=== PATIENT | male | born 1960 | race Caucasian/White ===

== ENCOUNTER 2019-06-22 09:28 | Emergency (ER) | payer MEDICARE, OTHER, MEDICAID, SELFPAY ==
[2019-06-22 09:29] VITALS: BP 137/89; PULSE 87; RESP 22; TEMP 36.8; O2SAT 95; BMI 25.7
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
[2019-06-22] MEDS: ketorolac 60 mg/2 mL INJ IM (11:30)
[2019-06-22 11:33] VITALS: RESP 16; O2SAT 98
[2019-06-22] MEDS: morphine 4 mg/mL SDV 1 mL IM (11:33)
[2019-06-22] MEDS: ondansetron 4 MG Tablet PO (11:34)
[2019-06-22 11:36] VITALS: BP 125/78; PULSE 72; RESP 18; O2SAT 96
[2019-06-22 13:07] VITALS: RESP 18; O2SAT 98
[2019-06-22] MEDS: morphine 4 mg/mL SDV 1 mL 6 MG IVP (13:07)
[2019-06-22 14:35] VITALS: BP 122/71; PULSE 82; RESP 18; O2SAT 98
== END 2019-06-22 14:38 | disposition home or self-care (01) ==
PROVIDERS: Emergency Provider Family Medicine; Family Provider Family Medicine; PCP Family Medicine
DX: Z04.1 Encounter for examination and observation following transport accident (principal); V89.2XXA Person injured in unspecified motor-vehicle accident, traffic, initial encounter; J45.909 Unspecified asthma, uncomplicated; Z86.73 Personal history of transient ischemic attack (TIA), and cerebral infarction without residual deficits; I10 Essential (primary) hypertension; Z87.891 Personal history of nicotine dependence
CPT/HCPCS: 70450; 72125; 72156; 96372; 96374; 99282; A9579; J1885; J2270; Q0162

== ENCOUNTER 2019-08-10 14:56 | Outpatient (CLI) | payer MEDICARE, SELFPAY ==
--- NOTE | 2019-08-10 15:15 | MR_ITS ---
WS: [id number] MRI LEFT KNEE NONCONTRAST TECHNIQUE: Axial PD, coronal PD fat sat, coronal PD, sagittal PD, and sagittal PD fat-sat images obta ined. CLINICAL INFORMATION: trauma to knee COMPARISON: None. FINDINGS: Normal anatomic alignment. Distal quadriceps and patella tendons are intact. Anterior cruciate ligame nt is normal. Normal posterior cruciate ligament. Hypertrophic patella. Moderate suprapatellar effusi on. Popliteal cyst. Popliteal cyst measures 2.8 x 3.2 x 5.6 cm AP by transverse by craniocaudal. Thin maggy of the medial and lateral meniscus. Complex horizontal tear involving the lateral meniscus with blunting of the anterior horn. Extension to the articular surface into the free edge of the meniscus. Horizontal tear involving the posterior horn medial meniscus. This extends the articular surface. Med ial and lateral collateral ligaments are intact. Moderate chondromalacia patella worse involving the lateral patella facet. No subchondral edema. Hype rtrophic patella. Hypertrophic changes along the joint line. MR/MR knee LT wo con* [id number] IMPRESSION: 1. Anterior and posterior cruciate ligaments are intact. 2. Complex horizontal tear involving the lateral meniscus extending to the art icular surface with blunting of the anterior horn. Additional tiny radial tear involving the posterior horn medial meniscus. 3. Large popliteal cyst measuring 2.8 x 3.2 x 5.6 cm with edema in the poplite al fossa. 4. Moderate chondromalacia patella. Moderate chondromalacia involving the medi al and lateral joint compartments with joint space narrowing.
== END 2019-08-10 14:57 | disposition home or self-care (01) ==
LOC: RADSHAW 15:03
PROVIDERS: Family Provider Family Medicine; PCP Family Medicine; Visit Provider Family Medicine
DX: M25.462 Effusion, left knee (principal); S83.272A Complex tear of lateral meniscus, current injury, left knee, initial encounter; X58.XXXA Exposure to other specified factors, initial encounter; M71.22 Synovial cyst of popliteal space [Baker], left knee; M22.42 Chondromalacia patellae, left knee
CPT/HCPCS: 73721

== ENCOUNTER → 2019-09-07 08:36 | Outpatient (BNVA) | payer MEDICARE, MEDICAID, SELFPAY | PROVIDERS: Family Provider Family Medicine; PCP Family Medicine; Visit Provider Nurse Practitioner | DX: F31.73 Bipolar disorder, in partial remission, most recent episode manic (principal); F41.1 Generalized anxiety disorder; F10.21 Alcohol dependence, in remission; F70 Mild intellectual disabilities | CPT/HCPCS: 99213 ==

== ENCOUNTER → 2019-09-14 09:25 | Outpatient (BNVA) | payer MEDICARE, MEDICAID, SELFPAY | PROVIDERS: Family Provider Family Medicine; PCP Family Medicine; Referring Provider Family Medicine; Visit Provider Specialist | DX: M17.0 Bilateral primary osteoarthritis of knee (principal) | CPT/HCPCS: 73560; 73565 ==

== ENCOUNTER 2019-09-18 10:53 | Day surgery (SDC) | payer MEDICARE, MEDICAID, SELFPAY ==
[2019-09-15 11:29] VITALS: BMI 29.8
[2019-09-18] VITALS (10 sets, daily range): BP systolic 117–131; BP diastolic 72–89; PULSE 72–88; RESP 13–24; TEMP 36.1–36.6; O2SAT 94–98
--- NOTE | 2019-09-18 11:34 | ANES.PREANE2 ---
Pre-Anesthetic Assessment Pre-Anesthetic Assessment: Height/Weight: Height 1.83 m Weight 99.79 kg Preop Diagnosis: Left knee lateral meniscal tear with internal derangement Proposed Procedure: Operation Date: 09/18/19 13:00 Proposed Procedures p Knee Arthroscopy with lateral menisectomy 14017 S82.282A(Left) - Melyssa Rome MD Familial anesthetic complications: None Was Beta Kim taken within 24 hours: N/A Last intake: Intake Last Liquid Date 09/18/19 Last Liquid Time 00:00 Last Solid Date 09/18/19 Last Solid Time 00:00 Social: Social History: Tobacco and No alcohol Packs per day: occasional cigarettes Exam: Pre-Anes Outpt Exam: alert, oriented x 3, clear to auscultation bilaterally and regular rate & rhythm Airway: Cervical ROM: WNL MP: 4 Dentition: False Pulmonary: Pulmonary: None reported CV/HEM: CV/HEM: None reported : : None reported Hepatic: Hepatic: None reported GI: GI: None reported Metabolic: Metabolic: None reported Musc/skel: Musc/skel: None reported Neuropsych: Neuropsych: Seizure (Last one was 1.5 years ago, stress induced) Anesthetic Plan: ASA status: 2 Anesthesia: General Risk of > 500 ml blood loss (7ml/kg in children): No PFSH Anesthesia PFSH: Social History Smoking and tobacco status: current some day smoker Alcohol intake: never Household members: none Marital status: Current occupational status: disabled History of recent travel: No Data Anesthesia Cardiac Studies: No Data to Display
[2019-09-18] MEDS: sodium chloride 0.9% 1,000 ML 30 ML IV (11:50)
[2019-09-18 12:17] LABS: Basophils % 0.2 %; Eosinophils # 0.3 10^3/uL (0.0-0.8); Eosinophils % 4.2 %; Hematocrit 41.7 % (42.0-52.0); Hemoglobin 14.2 g/dL (11.7-16.6); Lymphocytes # 2.3 10^3/uL (0.8-4.8); Lymphocytes % 37.1 %; Mean Corpuscular HGB Conc 34.1 g/dL (30.0-36.0); Mean Corpuscular Hemoglobin 31.4 pg (28.0-34.0); Mean Corpuscular Volume 92.3 fL (80-94); Mean Platelet Volume 9.9 fL (7.4-10.4); Monocytes # 0.7 10^3/uL (0.2-0.9); Monocytes % 11.9 %; Neutrophils # 2.9 10^3/uL (1.8-7.7); Neutrophils % 46.4 %; Nucleated Red Blood Cells % 0 %; Platelet Count 235 10^3/cmm (130-400); Red Blood Count 4.52 10^6/uL (4.1-5.3); Red Cell Distribution Width 12.3 % (12.1-15.1); White Blood Count 6.2 10^3/uL (4.0-10.0)
[2019-09-18 12:50] LABS: Blood Urea Nitrogen 13 mg/dL (6-20); Calcium 9.3 mg/dL (8.5-10.5); Carbon Dioxide 23 mmol/L (22-29); Chloride 103 mmol/L (98-107); Creatinine Clr Calc Pharmacy 142.4109; Glomerular Filtration Rate 116.2 mL/min (90-130); Glucose 88 mg/dL (65-115); Osmolality Calculated 282 mOsm/kg (285-295); Sodium 138 mmol/L (136-145)
--- NOTE | 2019-09-18 13:12 | W.PM.OPSUD ---
Surgery/Procedure H&P Update DATE OF PROCEDURE: September 18, 2019 DATE H&P PERFORMED: 09/14/19 H&P UPDATE INFORMATION: I have reviewed H&P completed within last 30 days, I have examined patient prior to procedure and H&P is in [facility] [place] EMR on date indicated PREOP DIAGNOSIS: Left knee lateral meniscal tear with internal derangement PLANNED PROCEDURE: Operation Date: 09/18/19 13:00 Proposed Procedures p Knee Arthroscopy with lateral menisectomy 28402 S82.282A(Left) - Melyssa Rome MD
[2019-09-18] MEDS: midazolam 1 mg/mL INJ 2 mL 2 MG IVP (13:14)
[2019-09-18] MEDS: morphine 4 mg/mL SDV 1 mL 8 MG IVP (14:25)
--- NOTE | 2019-09-18 14:45 | SUR.PHASEI ---
1440 PATIENT TO PACU AT THIS TIME FROM OR. RR EVEN AND UNLABORED. ORAL AIRWAY IN PLACE. SPO2 98% ON RA. DRESSING TO LEFT KNEE, CDI, LEFT PEDAL PULSE STRONG, INTACT.
--- NOTE | 2019-09-18 14:51 | SUR.PHASEI ---
1448 ORAL AIRWAY REMOVED. SPO2 97% ON RA.
[2019-09-18] MEDS: fentaNYL 50 mcg/mL INJ 2mL IVP (14:55)
--- NOTE | 2019-09-18 14:58 | P.OP_ITS ---
Operative Report Date of procedure: September 18, 2019 Pre-op Diagnosis: Left knee lateral meniscal tear with internal derangement Post-op Diagnosis: Left knee medial and lateral meniscal tears with significant degenerative osteoarthritic change patellofemoral and lateral compartments Procedure Done: Left arthroscopic knee surgery with partial medial and lateral meniscectomies with chondroplasty patellofemoral and lateral compartments. Pathology: none sent Surgeon: Melyssa Rome Optometry Professor: [facility] OR technicians Anesthesia: General (LMA, ASA 2) Estimated blood loss (mL): 2 Tourniquet time (min): 47 IV fluids (mL): 800 Urine output (mL): 0 Complications: None Findings: Medial and lateral meniscal tears with degenerative osteoarthritic change primarily in the patellofemoral and lateral compartments Condition: stable Disposition: PACU Brief History: Then discharged home with family this 58-year-old gentleman presented with complaints of significant left knee pain. MRI findings were consistent with posterior horn medial meniscal tear as well as lateral meniscal tear. Also, he was found to have degenerative osteoarthritis. Patient was unresponsive to conservative measures and wished to proceed with arthroscopic intervention and debridement as necessary. Therefore this was scheduled for him. Questions were answered preoperatively, and consents were signed. Procedure: Patient was brought to the operating theater and after undergoing adequate general LMA anesthesia, the patient's left lower extremity was prepped and draped in usual fashion utilizing DuraPrep. A tourniquet was placed high on the leg prior to prepping and draping. The tourniquet was elevated prior to commencement of the surgical procedure to 300 mmHg. Total tourniquet time was 47 minutes. Elevation followed prepping and exsanguination. Prior to commencement of the surgical procedure, a surgical pause was performed. At the time of the surgical pause, we identified the site and side of surgery. We also confirmed the patient's identity and appropriate and timely administration of preoperative antibiotics. Preoperative surgical markings were also visualized at this time. Standard arthroscopic portals were utilized including superolateral, inferomedial, and inferolateral portals. The examination commenced in the suprapatellar pouch area where the patient was noted to have chondromalacia of the significant degree on the undersurface of the patella as well as on the surface of the trochlear groove. The arthroscope was then passed in the medial compartment where there was noted to be synovitis. There was also noted to be a posterior horn medial meniscal tear with minimal osteoarthritic change within the medial compartment. The arthroscope was then passed across the notch area where anterior cruciate ligament was visualized and found to be intact. There was significant synovium surrounding the anterior portion of the lateral comp artment and the anterior cruciate ligament which needed to be debrided so that the lateral compartment could be visualized. The scope was passed into the lateral compartment with the knee in a [id number] position. Lateral meniscus was noted to have significant tearing and synovial changes around it. Also, the lateral compartment demonstrated significant chondromalacia of the lateral tibial plateau and lateral femoral condyle. Chondromalacia was addressed with the use of the intra-articular heat wand as well as minimal use of the shaver. The meniscus was addressed with a combination of the intra- articular shaver as well as the intra-articular heat wand. In this way, we were able to resect the meniscal tear and balance the meniscus. Once lateral meniscus had been thus prepared it was palpated and found to be intact and not displaceable into the knee joint. Scope was then returned to the medial compartment where the posterior horn the medial meniscus was debrided with a combination of the intra-articular heat wand and the intra-articular shaver. We were able to balance the meniscus. The meniscus was palpated and found to be not displaceable into the knee joint. The arthroscope was then returned to the patellofemoral joint where a chondroplasty was performed of the undersurface of the patella and along the trochlear groove. This chondroplasty involved use of the intra-articular shaver as well as the heat wand. Once the patella had been addressed, the scope was passed back through the knee compartments to evaluate for other abnormalities. Finding none, attention was directed to closure. The knee was copiously irrigated and suctioned dry. Following this, each portal was closed with a simple suture followed by Dermabond and Tegaderm. Additionally, the knee was injected with 20 mL of half percent ropivacaine and 8 mg of morphine. Additional 10 mL of ropivacaine was placed about the portals. Sterile dressing was placed consisting of the Tegaderm followed by the Jony wrap. Patient was returned to Recovery Room in satisfactory condition where he will be discharged home to follow-up with me in the office as scheduled. There were no complications and no specimens.
--- NOTE | 2019-09-18 15:13 | SUR.PHASEI ---
1510 PATIENT TO OPS AT THIS TIME. A/OX3. NO DISTRESS. TOLERATING ICE CHIPS. DRESSING, TO LEFT KNEE, CDI.
== END 2019-09-18 15:42 | disposition home or self-care (01) ==
PROVIDERS: Family Provider Family Medicine; PCP Family Medicine; Visit Provider Specialist
PROC: (CPT 29870; principal; 2019-09-18 13:00)
DX: S83.242A Other tear of medial meniscus, current injury, left knee, initial encounter (principal); S83.282A Other tear of lateral meniscus, current injury, left knee, initial encounter; X58.XXXA Exposure to other specified factors, initial encounter; F17.210 Nicotine dependence, cigarettes, uncomplicated; Z86.73 Personal history of transient ischemic attack (TIA), and cerebral infarction without residual deficits; I10 Essential (primary) hypertension; Z82.49 Family history of ischemic heart disease and other diseases of the circulatory system
CPT/HCPCS: 29880; 12345; 36415; 80048; 85025; 96365; 96374; J0131; J0690; J1100; J1885; J2001; J2250; J2270; J2405; J2704; J2795; J3010; J3490; J7030

== ENCOUNTER → 2019-10-31 14:42 | Outpatient (BNVA) | payer MEDICARE, MEDICAID, SELFPAY | PROVIDERS: Family Provider Family Medicine; PCP Family Medicine; Visit Provider Specialist | DX: G40.209 Localization-related (focal) (partial) symptomatic epilepsy and epileptic syndromes with complex partial seizures, not intractable, without status epilepticus (principal); F17.210 Nicotine dependence, cigarettes, uncomplicated | CPT/HCPCS: 99213 ==

== ENCOUNTER → 2019-11-08 13:49 | Outpatient (BNVA) | payer MEDICARE, MEDICAID, SELFPAY | PROVIDERS: Family Provider Family Medicine; PCP Family Medicine; Visit Provider Specialist | DX: R20.0 Anesthesia of skin (principal); R20.2 Paresthesia of skin | CPT/HCPCS: 95908; 95910 ==

== ENCOUNTER → 2019-11-23 10:42 | Outpatient (BNVA) | payer MEDICARE, MEDICAID, SELFPAY | PROVIDERS: Family Provider Family Medicine; PCP Family Medicine; Visit Provider Specialist | DX: M25.562 Pain in left knee (principal); M25.462 Effusion, left knee | CPT/HCPCS: 73560; 73565 ==

== ENCOUNTER → 2019-12-21 11:30 | Outpatient (BNVA) | payer MEDICARE, MEDICAID, SELFPAY | PROVIDERS: Family Provider Family Medicine; PCP Family Medicine; Visit Provider Specialist | DX: M25.462 Effusion, left knee; M17.12 Unilateral primary osteoarthritis, left knee | CPT/HCPCS: 80500; 84450; 87070; 87075; 89050 ==

== ENCOUNTER → 2020-01-16 09:37 | Outpatient (BNVA) | payer MEDICARE, MEDICAID, SELFPAY | PROVIDERS: Family Provider Family Medicine; PCP Family Medicine; Visit Provider Nurse Practitioner | DX: F70 Mild intellectual disabilities (principal); F41.1 Generalized anxiety disorder; F31.73 Bipolar disorder, in partial remission, most recent episode manic; F10.21 Alcohol dependence, in remission | CPT/HCPCS: 99213 ==

== ENCOUNTER → 2020-01-17 09:18 | Outpatient (BNVA) | payer OTHER, SELFPAY | PROVIDERS: Family Provider Family Medicine; PCP Family Medicine; Visit Provider Nurse Practitioner | DX: F31.4 Bipolar disorder, current episode depressed, severe, without psychotic features (principal) | CPT/HCPCS: 80061; 83036 ==

== ENCOUNTER → 2020-01-23 14:32 | Outpatient (BNVA) | payer MEDICARE, MEDICAID, SELFPAY ==
[2020-01-18 11:00] VITALS: BP 120/81; BMI 31.6
== END ==
PROVIDERS: Family Provider Family Medicine; PCP Family Medicine; Visit Provider Licensed Practical Nurse
DX: M50.020 Cervical disc disorder with myelopathy, mid-cervical region, unspecified level (principal); Z98.1 Arthrodesis status

== ENCOUNTER → 2020-04-11 09:37 | Outpatient (BNVA) | payer MEDICARE, MEDICAID, SELFPAY ==
[2020-04-10 14:28] VITALS: BP 120/81; BMI 31.6
== END ==
PROVIDERS: PCP Family Medicine; Visit Provider Specialist
DX: Z11.59 Encounter for screening for other viral diseases (principal); M17.12 Unilateral primary osteoarthritis, left knee
CPT/HCPCS: 87635

== ENCOUNTER 2020-04-16 13:42 | Observation (INO) | payer MEDICARE, MEDICAID, SELFPAY ==
[2020-01-18 11:00] VITALS: BP 120/81; BMI 31.6
[2020-04-09 12:43] VITALS: BMI 30.7
--- NOTE | 2020-04-09 13:12 | ANES.PREANE2 ---
Pre-Anesthetic Assessment Pre-Anesthetic Assessment: Height/Weight: Height 1.83 m Weight 102.965 kg Preop Diagnosis: Left knee DJD Proposed Procedure: Operation Date: 04/16/20 13:30 Proposed Procedures p left Total Knee Arthroplasty 18957 M17.10(Left) - Melyssa Rome MD Familial anesthetic complications: NOne Social: Comment: occassional MJ use Exam: Pre-Anes Outpt Exam: alert, oriented x 3, clear to auscultation bilaterally and regular rate & rhythm Airway: Cervical ROM: WNL MP: 3 Dentition: Partials GI: GI: GERD Neuropsych: Neuropsych: Neuropathy and Seizure (carbmazepine (anxiety induced) last seizure over a year ago) Anesthetic Plan: ASA status: 2 Anesthesia: General and Regional (specify below) Risk of > 500 ml blood loss (7ml/kg in children): No PFSH Anesthesia PFSH: Medical History Alcohol dependence, in remission Anxiety reaction Bipolar disorder, in partial remission, most recent episode manic Cervical disc disorder with myelopathy of mid-cervical region Chronic headaches CVA (cerebral vascular accident) Depression Erectile dysfunction Gastritis Generalized anxiety disorder Hypertension Mild intellectual disabilities Pancreatitis Seizure Superficial thrombophlebitis Surgical History H/O angioplasty H/O: knee surgery History of cardiac catheterization History of carpal tunnel surgery History of cholecystectomy Status post spinal arthrodesis 12/08/2018 Dr. Mehran Vail C5-C6 ACDFF Family History Father Cancer Heart disease Mother Cancer Heart disease Family/Other Diabetes Brother Diabetes Social History Smoking and tobacco status: current some day smoker Alcohol intake: never Household members: significant other Marital status: Current occupational status: disabled History of recent travel: Yes Current gender identity: Male Data Anesthesia Cardiac Studies: No Data to Display
[2020-04-09 13:58] LABS: Add Urine Microscopic? NO
[2020-04-09 14:08] LABS: Bilirubin Urine Neg (Negative); Blood Urine Neg (Negative); Glucose Urine UA Norm (Normal); Ketones Urine Negative (Negative); Leukocyte Esterase Urine Negative (Negative); Nitrate Urine Negative (Negative); Protein Urine Neg (Negative); Urine Appearance Clear (CLEAR); Urine Color Yellow (Yellow); Urobilinogen Urine Neg (Negative); pH Urine 6.5 (5-7)
[2020-04-09 14:09] LABS: Basophils % 0.2 %; Eosinophils # 0.2 10^3/uL (0.0-0.8); Eosinophils % 2.9 %; Hematocrit 44.7 % (42.0-52.0); Hemoglobin 14.6 g/dL (11.7-16.6); Lymphocytes # 2.1 10^3/uL (0.8-4.8); Mean Corpuscular HGB Conc 32.7 g/dL (30.0-36.0); Mean Corpuscular Hemoglobin 30.2 pg (28.0-34.0); Mean Corpuscular Volume 92.5 fL (80-94); Mean Platelet Volume 10.1 fL (7.4-10.4); Monocytes # 0.7 10^3/uL (0.2-0.9); Monocytes % 9.9 %; Neutrophils # 3.61 10^3/uL (1.8-7.7); Neutrophils % 54.7 %; Nucleated Red Blood Cells % 0 %; Platelet Count 270 10^3/cmm (130-400); Red Blood Count 4.83 10^6/uL (4.1-5.3); Red Cell Distribution Width 12.1 % (12.1-15.1); White Blood Count 6.6 10^3/uL (4.0-10.0)
[2020-04-09 14:31] LABS: Alanine Aminotransferase 41 U/L (0-41); Albumin Level 4.3 g/dL (3.5-5.2); Alkaline Phosphatase 100 IU/L (40-130); Anion Gap 13.5 (5-19); Aspartate Amino Transferase 22 U/L (0-40); Blood Urea Nitrogen 17 mg/dL (6-20); Calcium 9.1 mg/dL (8.5-10.5); Carbon Dioxide 27 mmol/L (22-29); Chloride 103 mmol/L (98-107); Globulin 2.3 g/dL (1.3-4.6); Glomerular Filtration Rate 99.3 mL/min (90-130); Glucose 118 mg/dL (65-115); Osmolality Calculated 293 mOsm/kg (285-295); Potassium 3.5 mmol/L (3.5-5.1); Sodium 140 mmol/L (136-145); Total Bilirubin 0.2 mg/dL (0.15-1.2); Total Protein 6.6 g/dL (6.6-8.7)
[2020-04-10 14:28] VITALS: BP 120/81; BMI 31.6
[2020-04-16] VITALS (15 sets, daily range): BP systolic 107–138; BP diastolic 61–89; PULSE 79–105; RESP 10–20; TEMP 36.3–36.9; O2SAT 94–100
[2020-04-16] MEDS: CELEcoxib 200 mg Capsule 400 MG PO (07:28)
[2020-04-16] MEDS: sodium chloride 0.9% 1,000 ML 30 ML IV (07:32)
[2020-04-16] MEDS: midazolam 1 mg/mL INJ 2 mL 2 MG IVP ×2 (07:45→09:37)
--- NOTE | 2020-04-16 08:01 | P.ANESUD_ITS ---
Pre-Anesthetic Update Pre-Anesthetic Assessment: Date of Surgery/Procedure: 04/16/20 Preop Keli gnosis: Left knee DJD Proposed Procedure: Operation Date: 04/16/20 09:00 Proposed Procedures p left Total Knee Arthroplasty 74273 M17.10(Left) - Melyssa Rome MD Any changes to Pre-Anesthetic Assessment?: No Last Intake: Intake Last Liquid Date 04/15/20 Last Liquid Time 21:00 Last Solid Date 04/15/20 Last Solid Time 21:00 Vitals: Temperature 97.4 F L 04/16/20 07:17 Pulse Rate 82 04/16/20 07:17 Pulse Rhythm 04/16/20 07:17 Pulse Strength 4+ Bounding 04/16/20 07:17 Respiratory Rate 18 04/16/20 07:17 Blood Pressure 129/89 04/16/20 07:17 Blood Pressure Loan n 102 04/16/20 07:17 Pulse Oximetry 96 04/16/20 07:17 Oxygen Delivery Me thod 04/16/20 07:17 Exam: Pre-Anes Outpt Exam: alert, oriented x 3, clear to auscultation bilaterally and regular rate & rhythm Cardiac Studies: No Data to Display
--- NOTE | 2020-04-16 08:02 | ANES.PROC ---
Anesthesia Procedures Procedure/Date: 04/16/20 Nerve Block ^: Nerve Block 1: Main Anesthesia: general anesthesia Time Out Performed: Yes Consent: requested by attending/covering physician, from patient, risks and benefits reviewed and patient agrees to proceed Anesthesia monitors applied: pulse oximetry, EKG, BP cuff and oxygen Nerve block position: semi sitting Anesthetic Used: ropivicaine 0.5% and with decadron (4 mh) Amount of anesthesia used (mL): 30 Ultrasound used to: recognize landmarks and visualize and ID femerol nerve Nerve Stimulator Used?: No Interscalene/Femoral BLK: 4 stimuplex 21 g needle used for position and inplane approach, visualize local anesthetic spread and no vascular puncture identified Injection: neg aspiration of heme and paresthesia +/- Patient Tolerated Procedure: well Complications: none
--- NOTE | 2020-04-16 08:45 | W.PM.OPSUD ---
Surgery/Procedure H&P Update DATE OF PROCEDURE: April 16, 2020 DATE H&P PERFORMED: 04/08/20 H&P UPDATE INFORMATION: I have reviewed H&P completed within last 30 days, I have examined patient prior to procedure, No changes to prior documentation and [place] is [place] [facility] [place] date indicated PREOP DIAGNOSIS: Left knee DJD PLANNED PROCEDURE: Operation Date: 04/16/20 09:00 Proposed Procedures p left Total Knee Arthroplasty 18722 M17.10(Left) - Melyssa Rome MD Related Problem List Diagnoses (1) Primary osteoarthritis of left knee:
[2020-04-16] MEDS: ceFAZolin 1,000 mg SDV 1000 MG IRRIGATION ×2 (11:28→11:30)
[2020-04-16] MEDS: vancomycin 1,000 MG SDV 1000 MG XX (11:31)
--- NOTE | 2020-04-16 12:37 | XR_ITS ---
WS: [id number] XR knee LT 3V* [id number] REASON FOR EXAM: Left total knee arthroplasty FINDINGS: Three-part total left knee arthroplasty. Position and alignment of the prosthetic parts as appropriat e. No focal bony abnormality. XR/XR knee LT 3V* [id number] IMPRESSION: Left knee arthroplasty without abnormality.
--- NOTE | 2020-04-16 12:38 | P.OP_ITS ---
Operative Report Date of procedure: April 16, 2020 Pre-op Diagnosis: Severe degenerative osteoarthritis left knee Post-op diagnosis: same Procedure Done: Left total knee arthroplasty Implants: The [place] total knee system with a size 7 triathlon beaded posterior stabilized femur left, a triathlon titanium tibial component size 7 beaded, a triathlon X3 posterior stabilized tibial bearing insert size 7 x 9 mm and a beaded triathlon titanium asymmetric patella size 38 x 11 mm Specimens removed/disposition: Bone, disposed of Pathology: none sent Surgeon: Melyssa Rome Personal Lines Sales Executive: [facility] OR technicians Anesthesia: General (Intubated with regional block placed preoperatively, ASA 2) Estimated blood loss (mL): 10 Tourniquet time (min): 119 Tourniquet time: At 250 mmHg IV fluids (mL): 900 Urine output (mL): 500 Complications: None Findings: Severe degenerative osteoarthritic change left knee Condition: stable Disposition: PACU (Then to floor for postoperative rehabilitation and pain management under observation status) Brief History: This 59-year-old man presented with plaints of severe left knee pain. He was unable to perform activities of daily living comfortably. He was unresponsive to conservative measures and wished to proceed with total knee arthroplasty. Risks and complications were discussed with him. Consents were signed preoperatively and questions were answered. The patient wished to proceed understanding the above. Procedure: The patient was brought to the operating theater, and after undergoing adequate general intubated anesthesia with supplemental regional block, ASA 2, the left lower extremity was prepped with Dura-Prep and draped in usual fashion following placement of a tourniquet high on the leg. The leg was then draped free. Following prepping and draping, the leg was exsanguinated, and the tourniquet was elevated to 250 mmHg for a total tourniquet time of 119 minutes. Prior to elevation of the tourniquet, but following exposure of the site of surgery, a surgical pause was performed. At the time of the surgical pause, we confirmed the site and side of surgery. Additionally, we confirmed the appropriate and timely administration of preoperative antibiotics, vancomycin 1 g and transe xemic acid 1 g. The availability of equipment was confirmed, and the patient's identity was verbalized as well. Following the surgical pause, an incision was made centering over the patella continuing proximally and distally as necessary to allow access to the knee joint. Dissection continued through skin and soft tissues using a scalpel. Hemostasis was obtained using electrocautery. The skin incision was followed by a median parapatellar arthrotomy. The leg was extended and the patella was everted. Following this, the leg was returned to flexed position. The distal femur was exposed and a drill hole was made in this for placement of the distal femoral jig. The distal femoral jig was set at 5? of valgus. The distal femoral cutting block was then placed in appropriate position, and an brian wing was used to confirm an appropriate amount of distal femur would be resected. The distal femoral resection was accomplished with 8 mm of bone being resected distally. After the distal femoral resection had been accomplished, the femur was measured and it measured a size 7. Medial lateral dimension also measured a size 7. A size 7 femoral cutting block was placed in position, and we were then able to accomplish the anterior, posterior and chamfer cuts. This jig was then removed and the notch guide was placed in position. With the notch guide in appropriate position, the notch was excised including resection of the anterior and posterior cruciate ligaments. This notch was to allow for the posterior stabilized femoral component. At this point, the femur was prepared and attention was directed to the proximal tibia. The posterior knee retractor was placed along with medial and lateral retractors. Further resection of the menisci was accomplished as we had better visualization. A complete meniscectomy was performed both medially and laterally with care being taken to protect the popliteus. Retractors were then placed so that the proximal tibia was well visualized. A drill hole was then made in the tibia for placement of the intramedullary guide. This guide was placed so that approximately 2 mm of bone would be resected from the deficient medial tibial plateau. The intramedullary guide was utilized supplemented with an extramedullary guide to assure appropriate alignment for the proximal tibial resection. The proximal tibial jig was then evaluated, pinned in position, and the proximal tibial resection was accomplished without difficulty. The jig was removed and the proximal tibia was measured. It measured a size 7. We then attempted a trial reduction with a size 7 by 9 mm insert. The femoral component was placed in position for the trial reduction, and the knee was placed through range of motion. There was excellent stability with excellent varus-valgus alig nment with appropriate patellar tracking. This was felt to be the appropriate size insert. There was full extension and flexion without lift off and the rotation of the tibia was marked. Alignment was checked from the hip to the ankle, and this was noted to be appropriate as well. Attention was then directed to the patella. The patella was measured with a caliper. We resected sufficient patella to leave approximately 16 mm of patella remaining. Measurements of the patella then indicated that a size asymmetric 38 mm x 11 mm was the appropriate patellar size. We then placed the jig to drill for the 3 pegs of the press-fit patella, and these drill holes were made without incident. A trial patella was then placed, and the knee was placed through range of motion. The patella was noted to track nicely without evidence of subluxation. The femur was prepared for a press-fit femur by drilling 2 holes for the femoral pegs. All trial components were subsequently removed. The tibial tray was then pinned into position, and we broached the tibia for the stem of the tibial component. Subsequently, 4 drill holes were made for placement of the press-fit tibia. This was accomplished without difficulty. Care was taken to assure appropriate rotation of the tibia as well as appropriate position on the proximal tibia. The tibial tray was completely seated on the proximal tibia. Following broaching, the tibial guide was removed, and all surfaces were copiously irrigated. The surfaces were then dried and a bone plug was placed into the distal femur. Exparel was also injected at this point. The Tritanium tibia was impacted into position. The beaded femur was then impacted into position in a cementless fashion. The tibial insert was placed. The patella was pressed into position with a patellar clamp. The knee was irrigated with 20 mL of Betadine and 500 mL of normal saline, and this was allowed to remain in the knee for 3-4 minutes. The knee was then copiously irrigated and suctioned dry. Attention was then directed to closure. Closure was accomplished with 0 Vicryl in the fascial tissues, 2-0 Monocryl was used in the subcutaneous tissues, and the skin was closed with skin siddharth and Exofin. A sterile dressing was then placed consisting of Telfa, 4 x 4's, ABDs, sterile soft roll, and an Jony wrap. The patient was returned the Recovery Room in a satisfactory condition. X-rays were obtained there. The patient will be discharged to the floor for postoperative rehabilitation and pain management. He'll be under observation status with plans to discharge home with home health. Associated Problem List Diagnoses (1) Osteoarthritis of left knee: Qualifiers: Osteoarthritis type: primary Qualified Code(s): M17.12 - Unilateral primary osteoarthritis, left knee
--- NOTE | 2020-04-16 12:59 | SUR.PHASEI ---
pt more awake alert talkative, pt rates pain at 8 but then quickly back to sleep with no S/S OF PAIN
--- NOTE | 2020-04-16 13:09 | SUR.PHASEI ---
PT VERY ALERT ASKS QUESTIONS NON STOP/ LT KNEE DRESSING D/I
--- NOTE | 2020-04-16 13:35 | ANE.PACU2 ---
Inpatient post-anesthesia follow up: Airway intact: Yes Vital signs: Temperature 98.2 F Pulse Rate 82 Respiratory Rate 17 Blood Pressure 129/84 Pulse Oximetry 97 Oxygen Delivery Me thod Nasal Cannula Oxygen Flow Rate 2 Fraction of Inspir ed Oxygen Hydration adequate: Yes Nausea and vomiting: No Pain level: 2 Mental status: Baseline
[2020-04-16] MEDS: oxyCODONE 5 mg IR Tab/Cap PO ×2 (14:47→19:24)
[2020-04-16] MEDS: chlorhexidine gluconate 0.12% Btl 473 mL 30 ML MUCOUS MEM ×3 (14:48→20:56)
[2020-04-16] MEDS: lactated ringers 1,000 ML 100 ML IV ×2 (14:48→23:49)
[2020-04-16] MEDS: carBAMazepine XR (12 HR) 200 mg Tablet PO ×2 (15:09→20:56)
[2020-04-16] MEDS: mupirocin oint 22 gm 1 APPLIC NASAL (17:13)
[2020-04-16] MEDS: pantoprazole DR 40 mg Tablet PO (18:19)
[2020-04-16] MEDS: sennosides-docusate Tablet 2 TAB PO (18:19)
[2020-04-16] MEDS: calcium carbonate 500 mg Chew Tablet 1000 MG PO (18:19)
[2020-04-16] MEDS: iron polysaccharide complex 150 mg Capsule PO (18:19)
[2020-04-16] MEDS: CELEcoxib 200 mg Capsule PO (18:19)
--- NOTE | 2020-04-16 23:39 | PC.NURSE ---
Patient informed nurse that he has an allergy to Tramadol when this nurse attempted to give medication to patient. Patient states I took Tramadol one time and had a seizure about 30 minutes after taking the pill. Medication was added to patient allergy list with new allergy band reflecting changes placed on patient.
[2020-04-17] VITALS (12 sets, daily range): BP systolic 107–135; BP diastolic 69–84; PULSE 83–104; RESP 16–18; TEMP 36.7–37.4; O2SAT 94–98
[2020-04-17 03:07] LABS: Basophils % 0.1 %; Eosinophils % 0.1 %; Hematocrit 36.9 % (42.0-52.0); Hemoglobin 11.9 g/dL (11.7-16.6); Lymphocytes # 1.7 10^3/uL (0.8-4.8); Lymphocytes % 13.9 %; Mean Corpuscular HGB Conc 32.2 g/dL (30.0-36.0); Mean Corpuscular Hemoglobin 30.1 pg (28.0-34.0); Mean Corpuscular Volume 93.4 fL (80-94); Mean Platelet Volume 10.2 fL (7.4-10.4); Monocytes # 1.3 10^3/uL (0.2-0.9); Monocytes % 10.6 %; Neutrophils # 9.22 10^3/uL (1.8-7.7); Nucleated Red Blood Cells % 0 %; Platelet Count 221 10^3/cmm (130-400); Red Blood Count 3.95 10^6/uL (4.1-5.3); Red Cell Distribution Width 12.2 % (12.1-15.1); White Blood Count 12.3 10^3/uL (4.0-10.0)
[2020-04-17 03:32] LABS: Anion Gap 11.7 (5-19); Blood Urea Nitrogen 10 mg/dL (6-20); Carbon Dioxide 26 mmol/L (22-29); Chloride 105 mmol/L (98-107); Creatinine Clr Calc Pharmacy 142.7613; Glomerular Filtration Rate 115.8 mL/min (90-130); Glucose 119 mg/dL (65-115); Osmolality Calculated 288 mOsm/kg (285-295); Potassium 3.7 mmol/L (3.5-5.1); Sodium 139 mmol/L (136-145)
[2020-04-17] MEDS: oxyCODONE 5 mg IR Tab/Cap PO ×4 (05:09→15:47)
--- NOTE | 2020-04-17 06:01 | PC.NURSE ---
Live catheter removed per doctor order. Catheter in tact. Scant discharge thick, yellow, blood tinged upon removal. Patient tolerated well. Patient up in chair reporting pain improved.
[2020-04-17] MEDS: CELEcoxib 200 mg Capsule PO (06:33)
[2020-04-17] MEDS: calcium carbonate 500 mg Chew Tablet 1000 MG PO (08:28)
[2020-04-17] MEDS: tamsulosin 0.4 mg Capsule PO (08:28)
[2020-04-17] MEDS: cholecalciferol (vitamin D3) 1,000 unit Tablet 1000 UNIT PO (08:28)
[2020-04-17] MEDS: carBAMazepine XR (12 HR) 200 mg Tablet PO ×2 (08:28→14:59)
[2020-04-17] MEDS: chlorhexidine gluconate 0.12% Btl 473 mL 30 ML MUCOUS MEM (08:29)
[2020-04-17] MEDS: mupirocin oint 22 gm 1 APPLIC NASAL (08:29)
[2020-04-17] MEDS: mirtazapine 15 mg Tablet PO (08:29)
[2020-04-17] MEDS: sennosides-docusate Tablet 2 TAB PO (08:29)
[2020-04-17] MEDS: pantoprazole DR 40 mg Tablet PO (08:29)
[2020-04-17] MEDS: multivitamin therapeutic Tablet 1 TAB PO (08:29)
[2020-04-17] MEDS: citalopram 20 mg Tablet PO (08:29)
[2020-04-17] MEDS: aspirin 325 mg EC Tablet PO (08:29)
[2020-04-17] MEDS: iron polysaccharide complex 150 mg Capsule PO (08:29)
[2020-04-17] MEDS: vancomycin 1,000 MG in sodium chloride 0.9% 250 ML 250 MG IV (08:30)
--- NOTE | 2020-04-17 11:14 | PC.OT ---
OT EVALUATION ORDERS RECEIVED. PATIENT REQUIRES SCREEN ONLY AT THIS TIME HE IS SBA TO DON SOCK AND INDEPENDENT TO DOFF. PATIENT WAS INDEPENDENT IN TRANSFERS. NO FURTHER SKILLED OT REQUIRED.
--- NOTE | 2020-04-17 12:15 | ANE.PACU2 ---
Inpatient post-anesthesia follow up: Airway intact: Yes Vital signs: Temperature 98.3 F Pulse Rate 97 Respiratory Rate 16 Blood Pressure 132/77 Pulse Oximetry 94 Oxygen Delivery Me thod Room Air Oxygen Flow Rate 2 Fraction of Inspir ed Oxygen Hydration adequate: Yes Nausea and vomiting: No Pain level: 3 Mental status: Baseline Additional Comments: No residual blockade noted
--- NOTE | 2020-04-17 13:39 | PC.RESP ---
Smoking Cessation information sent to patient.
--- NOTE | 2020-04-17 14:30 | P.DS_ITS ---
Discharge Providers Date of Admission: 04/16/20 13:42 Date of Discharge: April 17, 2020 Attending Provider at Admission: Melyssa Rome MD Attending Provider at Discharge: Melyssa Rome MD Primary Care Provider: Colby Mota MD Diagnoses at Discharge Discharge Diagnosis (1) Osteoarthritis of left knee: Status: Acute Qualifiers: Osteoarthritis type: primary Qualified Code(s): M17.12 - Unilateral primary osteoarthritis, left knee (2) History of total left knee replacement: Status: Acute Reason for Visit Reason for Visit: left knee total arthroplasty Hospital Course Hospital Course The patient was admitted yesterday for same-day surgery. He had a left total knee arthroplasty which was uneventful. Following this, he was admitted under observation status to the floor. On the first postoperative day, he was up and walking independently with a walker. He was felt safe for discharge to home. His dressing was removed, and his wounds were benign. There was no evidence of DVT. He was neurologically intact. The patient is scheduled for outpatient therapy. He will not have a need for home health. Physical Exam Const: COMMON NORMALS: no acute distress, average body habitus, patient orie nted x3 and alert GENERAL APPEARANCE: cooperative and comfortable ORIENTATION/CONSCIOUSNESS: Yes awake HENMT: COMMON NORMALS: normocephalic and atraumatic HEAD & SCALP: normocephalic and atraumatic Eye: GENERAL EYE: appearance normal, both eyes and all related structures Chest: COMMONS NORMALS: normal inspection of the chest Resp: COMMON NORMALS: normal respiratory effort EFFORT & INSPECTION: Yes able to speak in complete sentences and Yes symmetric chest movement Extremity: LEFT LOWER EXTREMITY: Yes knee joint (Patient's dressing is removed. There is minimal swelling. ) Left knee: Yes inspection (The wound is benign.), Yes palpation (No significant tenderness to palpation.), Yes ROM (Extension is full, Flexion is not evaluated.) and Yes neurovascular exam (Intact with no evidence of DVT) Neuro: COMMON NORMALS: patient oriented x3 SENSORIUM/ORIENTATION: Yes alert Psych: COMMON NORMALS: mental status grossly normal APPEARANCE: Yes grossly normal ATTITUDE: Yes calm and Yes engaged ATTENTION/CONCENTRATION: Yes attention grossly intact Skin: COMMON NORMALS: no rashes or lesions noted GENERAL SKIN EXAM: no rashes or lesions noted Urinary Catheter Management^: Live: Cath Placed During This Visit: yes, but has since been removed by the nurse Reason for Continuing Indwelling Catheter: Decision to DC Catheter Urinary Catheter Date of Insertion: 04/16/20 Urinary Catheter Time of Insertion: 10:00 Date Urinary Catheter Removed: 04/17/20 Time Urinary Catheter Discontinued: 06:01 Discharge Data Data Completed and Pending: Completed Studies During Hospitalization Category Date Time Status XR knee LT 3V* [id number] Urgent Exams 04/16/20 12:37 Completed Pending at discharge Category Date Time Status Complete Blood Co unt w/Auto AM LABS Lab 04/18/20 04:00 Ordered Complete Blood Co unt w/Auto AM LABS Lab 04/19/20 04:00 Ordered Labs from last 24 hours 04/17/20 04/17/20 02:12 02:12 WBC 12.3 H RBC 3.95 L Hgb 11.9 Hct 36.9 L MCV 93.4 MCH 30.1 MCHC 32.2 RDW 12.2 Plt Count 221 MPV 10.2 Neut % (Auto) 75.0 Lymph % (Auto) 13.9 Routt % (Auto) 10.6 Eos % (Auto) 0.1 Baso % (Auto) 0.1 Neut # (Auto) 9.22 H Lymph # (Auto) 1.7 Routt # (Auto) 1.3 H Eos # (Auto) 0.0 Baso # (Auto) 0.0 Nucleated RBC % (a uto) 0 Nucleated RBCs # 0.0 Sodium 139 Potassium 3.7 Chloride 105 Carbon Dioxide 26 Anion Gap 11.7 BUN 10 Creatinine 0.7 GFR Calculation 115.8 Glucose 119 H Calculated Osmolal ity 288 Calcium 9.0 Vitals: Last Vital Signs Temp 98.0 F 04/17/20 13:56 Pulse 95 04/17/20 13:56 Resp 17 04/17/20 13:56 BP 130/75 04/17/20 13:56 Pulse Ox 95 04/17/20 13:56 Discharge Plan Discharge Patient Disposition: Home Condition: Stable Prescriptions: New aspirin 325 mg Tablet,Delayed Release (Dr/Ec) 325 mg PO DAILY Qty: 0 RF: 0 celecoxib 200 mg Capsule 200 mg PO Q12H Qty: 60 RF: 0 oxycodone 5 mg Tablet 5 - 10 mg PO Q4H PRN (Reason: Moderate Pain) Qty: 30 RF: 0 Continued potassium chloride 20 mEq tablet extended release 20 meq PO DAILY PRN (Reason: Pain) RF: 0 mirtazapine [Remeron] 15 mg tablet 15 mg PO DAILY RF: 0 sildenafil [Viagra] 100 mg tablet 100 mg PO ONCE 30 Days Qty: 10 RF: 2 tamsulosin 0.4 mg capsule 0.4 mg PO DAILY Qty: 90 RF: 2 omeprazole 20 mg capsule,delayed release(DR/EC) 20 mg PO BID Qty: 60 RF: 6 carbamazepine [Tegretol XR] 200 mg tablet extended release 12 hr 200 mg PO TID Qty: 90 RF: 0 acetaminophen [Tylenol Extra Strength] 500 mg tablet 500 mg PO TID MDD 3000 mg PRN (Reason: pain) Qty: 60 RF: 0 citalopram [Celexa] 40 mg tablet 20 mg PO DAILY RF: 0 Held hydrocodone-acetaminophen 7.5-325 mg tablet 1 tab PO BID PRN (Reason: Severe Pain (Scale Score 7-10)) RF: 0 Hold Instructions: Resume on 04/24/20. Use Oxycodone as needed then resume hydrocodone naproxen sodium 500 mg tablet, ER multiphase 24 hr 500 mg PO DAILY Qty: 30 RF: 2 Hold Instructions: Resume on 05/17/20. Until finished with Celebrex Discharge Orders: Discharge Order (Routine); Ordered 04/17/20 Ordered By: Melyssa Rome Other Ambulatory Orders: DME: Walker (Order) Location: None Selected Ordered By: Melyssa Rome Referrals: Scarlett Manning [Physical Therapist] - 04/22/20 12:30 pm (Please come to the [facility] at 12:30 PM on April 22 2020 for check in. You will be se sander Manning DPT for physical Therapy services.) Melyssa Rome MD [Physician] - 05/02/20 3:15 pm Discharge Diet: Advance as tolerated and Usual diet Discharge Activity: Increase activity as tolerated, Limit activity as instructed, Use walker/crutches as instructed and As per PT/OT instructions Patient Instructions: Oxycodone/Acetaminophen (By mouth), Aspirin (By mouth), Celecoxib (By mouth), Pancreatitis (DC), Osteoarthritis (DC) Activity Restrictions/Additional Instructions: Cover wound as needed. Range of motion, gait training, ambulation as instructed by home PT Discharge Attestations Time Spent in Discharge Care*: greater than 30 min Specific Discharge Activities: educating patient, discussing with case resolution specialist/social workers/dc planners and documenting/other paperwork Status at Discharge: Cognitive status at discharge: cognitively intact , Behavioral status at discharge: cooperative , Functional status at discharge: uses cane/walker Quality Metrics Clinical Quality Measures During this hospital stay, did patient experience: None Coding Level of Care Code Acute [employer] Estate 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
--- NOTE | 2020-04-17 15:39 | PC.NURSE ---
pt received medications from pharmacy
--- NOTE | 2020-04-17 15:57 | PC.NURSE ---
pt received discharge paperwork
--- NOTE | 2020-04-17 16:13 | PC.NURSE ---
pt received walker from HOME
== END 2020-04-17 16:15 | disposition home or self-care (01) ==
LOC: MEDSURG 04-17 01:15
PROVIDERS: Admitting Provider Specialist; PCP Family Medicine; Visit Provider Specialist
PROC: (CPT 27447; principal; 2020-04-16 09:00)
DX: M17.12 Unilateral primary osteoarthritis, left knee (principal); F41.9 Anxiety disorder, unspecified; Z86.73 Personal history of transient ischemic attack (TIA), and cerebral infarction without residual deficits; F32.9 Major depressive disorder, single episode, unspecified; I10 Essential (primary) hypertension; F17.210 Nicotine dependence, cigarettes, uncomplicated
CPT/HCPCS: 27447; 12345; 36415; 64447; 73562; 76942; 80048; 80053; 81003; 85025; 96360; 96361; 96365; 96374; 97110; 97116; 97161; C1776; C9290; G0378; J0131; J0690; J1100; J2250; J2405; J2704; J2710; J2795; J3010; J3370; J3490; J7030; J7050

== ENCOUNTER 2020-04-22 12:34 | Outpatient (RCR) | payer MEDICARE, MEDICAID, SELFPAY ==
[2020-04-10 14:28] VITALS: BP 120/81; BMI 31.6
== END 2020-04-22 23:59 | disposition home or self-care (01) ==
LOC: SPT 12:34
PROVIDERS: PCP Family Medicine; Referring Provider Specialist; Visit Provider Specialist
DX: Z47.1 Aftercare following joint replacement surgery (principal); Z96.652 Presence of left artificial knee joint
CPT/HCPCS: 97161

== ENCOUNTER 2020-04-23 06:00 | Outpatient (RCR) | payer MEDICARE, MEDICAID, SELFPAY ==
[2020-04-10 14:28] VITALS: BP 120/81; BMI 31.6
== END 2020-05-23 23:59 | disposition home or self-care (01) ==
LOC: SPT 06:00
PROVIDERS: PCP Family Medicine; Referring Provider Specialist; Visit Provider Specialist
DX: Z47.1 Aftercare following joint replacement surgery (principal); Z96.652 Presence of left artificial knee joint
CPT/HCPCS: 97110

== ENCOUNTER → 2020-05-02 15:53 | Outpatient (BNVA) | payer MEDICARE, MEDICAID, SELFPAY ==
[2020-04-10 14:28] VITALS: BP 120/81; BMI 31.6
== END ==
PROVIDERS: PCP Family Medicine; Visit Provider Specialist
DX: G89.18 Other acute postprocedural pain (principal); Z47.1 Aftercare following joint replacement surgery; Z96.652 Presence of left artificial knee joint
CPT/HCPCS: 73560; 73565

== ENCOUNTER → 2020-05-09 08:47 | Outpatient (BNVA) | payer MEDICARE, MEDICAID, SELFPAY ==
[2020-04-10 14:28] VITALS: BP 120/81; BMI 31.6
== END ==
PROVIDERS: PCP Family Medicine; Visit Provider Nurse Practitioner
DX: F41.1 Generalized anxiety disorder (principal); F31.73 Bipolar disorder, in partial remission, most recent episode manic
CPT/HCPCS: 99214

== ENCOUNTER → 2020-05-13 15:20 | Outpatient (BNVA) | payer MEDICARE, MEDICAID, SELFPAY ==
[2020-04-10 14:28] VITALS: BP 120/81; BMI 31.6
== END ==
PROVIDERS: PCP Family Medicine; Visit Provider Specialist
DX: Z47.1 Aftercare following joint replacement surgery (principal); Z96.652 Presence of left artificial knee joint
CPT/HCPCS: 73560; 73565

== ENCOUNTER 2020-05-13 15:55 | Inpatient (IN) | payer MEDICARE, MEDICAID, SELFPAY ==
[2020-04-10 14:28] VITALS: BP 120/81; BMI 31.6
[2020-05-13 17:00] VITALS: BP 118/77; PULSE 101; RESP 14; TEMP 37.1; O2SAT 96; BMI 29.1
--- NOTE | 2020-05-13 17:59 | PM.HP ---
Providers/Chief Complaint Admitting Physician: Angeli Ling MD Primary Care Provider: Colby Mota MD Chief Complaint: INFECTION IN L KNEE/SENT BY DR ROME History of Present Illness Anil Jacobs is a 59 year old male with recent TKR on 04/16 for OA, doingw ell post operatively until this past (today is wednesday) when he suffered a mechanical fall and landed on his left knee which resulted in opening of the post surgical siddharth, he went to [place] [facility] were siddharth were replaced and patient discharged home. Over the next 24 hrs, he started to notice discharge from the incision site described as bloody serous, occassionally white-yellow. Evaluted by Dr. Rome the next day and started on Clindamycin 300mg po TID, however discharge has persisted to somehwat increased. Starting Wednesday noght also describes chills and profuse sweating. No objective fever noted. No gross cellulitis around left knee, however reports popilteal fssa swelling persisting since surgery, mildly increased since his fall. Movement at joint appears more restricted per him. Planned for wound exploration and likely debridement in the OR with Dr. Rome no other joints replced, no cardiac hardware Review of Systems General: Reports: 10 or more systems reviewed and unremarkable except in HPI and below Const: Denies: fever(s), chills or body aches Eyes: Denies: change in vision, blurry vision or photophobia ENMT: Reports: hoarseness; Denies: throat pain, enlarged tonsils, odynophagia or nasal congestion Card: Denies: chest pain, palpitations, irregular heart rhythm, edema, swelling of feet/ankles, lightheadedness, pre-syncope, dyspnea on exertion or orthopnea Resp: Denies: dyspnea, productive cough, non-productive cough, wheezing, stridor, pain on inspiration, change in phlegm color, hemoptysis or chest congestion GI: Denies: abdominal pain, nausea, vomiting, hematemesis, coffee ground emesis, dysphagia, heartburn, diarrhea, constipation, GI cramping, change in stool character, hematochezia or melena : Denies: flank pain, dysuria, urinary frequency, urinary urgency, urinary hesitancy or hematuria Musc: Denies: neck pain, back pain, extremity pain, joint swelling, joint warmth or deformity Neuro: Denies: headache(s), numbness in extremities, weakness in extremities, sensory changes, difficulty walking, frequent falls, dizziness, vertigo, behavioral changes, Slurred speech present or seizure-like activity Psych: Denies: anxiety, depression, suicidal ideation or homicidal ideation Endo: Denies: polyuria, polydipsia, tired all the time, cold intolerance or hot flashes Armando/Lymph: Denies: easy bruising or easy bleeding Medications/Allergies Home Medications Medication Instructions Recorded Confirmed Last Taken Type sildenafil 100 mg tablet 100 mg PO ONCE 30 Days #10 tab 05/31/19 05/13/20 04/15/20 Rx naproxen sodium 500 mg 500 mg PO DAILY #30 tab 08/21/19 05/13/20 04/15/20 Rx tablet,extended release 24 hr mphase acetaminophen [Tylenol Extra 500 mg PO TID PRN #60 tab MDD 3000 09/18/19 05/13/20 04/15/20 Rx Strength] mg potassium chloride 20 mEq 20 meq PO DAILY PRN 10/31/19 05/13/20 04/15/20 History tablet,extended release tamsulosin 0.4 mg capsule 0.4 mg PO DAILY #90 cap 12/07/19 05/13/20 04/15/20 Rx omeprazole 20 mg capsule,delayed 20 mg PO BID #60 cap 01/30/20 05/13/20 04/15/20 Rx release carbamazepine 200 mg 200 mg PO TID #90 tab 03/21/20 05/13/20 04/15/20 Rx tablet,extended release,12 hr hydrocodone 7.5 mg-acetaminophen 1 tab PO BID PRN 04/08/20 05/13/20 04/16/20 History 325 mg tablet aspirin 325 mg PO DAILY #0 tab 04/17/20 05/13/20 Unknown Rx celecoxib 200 mg PO Q12H #60 cap 04/17/20 05/13/20 Unknown Rx oxycodone 5 - 10 mg PO Q4H PRN #30 tab 04/17/20 05/13/20 Unknown Rx hydrocodone 7.5 mg-acetaminophen 1 tab PO BID PRN 30 Days #34 tab 05/03/20 05/13/20 Unknown Rx 325 mg tablet citalopram 40 mg tablet 40 mg PO DAILY #30 tab 05/09/20 05/13/20 Unknown Rx mirtazapine 15 mg tablet 15 mg PO .HS #30 tab 05/09/20 05/13/20 Unknown Rx clindamycin HCl 300 mg capsule 300 mg PO TID 7 Days #21 cap 05/10/20 05/13/20 Unknown Rx Allergies Allergy/AdvReac Type Severity Reaction Status Date / Time tramadol Allergy ADR-Seizure Verified 05/13/20 15:11 PFSH Acute PFSH: Medical History (Updated 05/13/20 @ 22:24 by Angeli Ling MD) Alcohol dependence, in remission Anxiety reaction Bipolar disorder, in partial remission, most recent episode manic Cervical disc disorder with myelopathy of mid-cervical region Chronic headaches CVA (cerebral vascular accident) Depression Erectile dysfunction Gastritis Generalized anxiety disorder Hypertension Mild intellectual disabilities Pancreatitis Seizure Superficial thrombophlebitis Surgical History H/O angioplasty H/O: knee surgery History of cardiac catheterization History of carpal tunnel surgery History of cholecystectomy Status post spinal arthrodesis 12/08/2018 Dr. Mehran [place] C5-C6 ACDFF Family History Father Cancer Heart disease Mother Cancer Heart disease Family/Other Diabetes Brother Diabetes Social History Smoking and tobacco status: current some day smoker Alcohol intake: never Household members: significant other Marital status: Current occupational status: disabled History of recent travel: Yes Current gender identity: Male Vitals/I&O/Wt Last Vital Signs Temp 98.8 F 05/13/20 17:00 Pulse 101 H 05/13/20 17:00 Resp 14 05/13/20 17:00 BP 118/77 05/13/20 17:00 Pulse Ox 96 05/13/20 17:00 Weight last 48 hrs Weight 97.522 kg Physical Exam Const: COMMON NORMALS: no acute distress, average body habitus, patient oriented x3, no limitations, healthy appearing, alert and well nourished HENMT: COMMON NORMALS: normocephalic and atraumatic HEAD & SCALP: normocephalic and atraumatic Eye: COMMON NORMALS: Equal, round and reactive pupils present, EOMs intact bilaterally, conjunctivae normal and no scleral icterus CONJUNCTIVA: Yes conjunctivae normal PUPIL: Yes Equal, round and reactive pupils present Neck/C-Spine: COMMON NORMALS: no JVD Resp: COMMON NORMALS: normal respiratory effort, No retractions, No use of accessory muscles, clear to auscultation bilaterally and percussion normal AUSCULTATION: clear to auscultation bilaterally PERCUSSION: percussion normal Cardio: COMMON NORMALS: no JVD, regular rate, regular rhythm, S1 normal heart sound present, S2 normal heart sound present, No gallops present (Cardio), No clicks present (Cardio), No murmurs present (Cardio), No rub (Cardio) and Peripheral pulses 2+ throughout RATE: regular rate RHYTHM: regular rhythm HEART SOUNDS: S1 normal heart sound present and S2 normal heart sound present PERIPHERAL PULSES: Peripheral pulses 2+ throughout GI: COMMON NORMALS: Normal to inspection, nondistended, normoactive bowel sounds present, Soft to palpation, non-tender, No hepatosplenomegaly present, no masses and no bruits PALPATION: Yes Soft to palpation and Yes No hepatosplenomegaly present Extremity: COMMON NORMALS: normal to inspection, capillary refill normal, no clubbing, cyanosis or edema, no calf tenderness and no pedal edema NARRATIVE EXTREMITY EXAM: swelling around left knee joint and popliteal fossa with restriceted ROM, no gross signs of cellulitis. suture line with siddharth in place, areas of wound dehiscnece noted superiorly, no gorss pus discharge however crusting noted over suture line. Neuro: COMMON NORMALS: patient oriented x3, CN's II-XII intact bilaterally, moves all extremities, no focal motor deficits, no sensory deficits noted, deep tendon reflexes 2+ bilaterally and gait normal SENSORIUM/ORIENTATION: Yes alert Psych: COMMON NORMALS: mental status grossly normal, Normal thought process present, cooperative, normal affect, speech normal, activity/motor behavior normal, denies hallucinations, denies homicidal ideation and denies suicidal ideation SPEECH: Yes normal speech THOUGHT PROCESS: Normal thought process present Skin: COMMON NORMALS: no rashes or lesions noted, no wounds, turgor normal, no jaundice, no petechiae and no mottling GENERAL SKIN EXAM: no rashes or lesions noted and turgor normal A&P Assessment and plan (1) History of total left knee replacement: Status: Acute (2) Wound dehiscence: Status: Acute (3) Contusion of left knee: Status: Acute Qualifiers: Encounter type: initial encounter Qualified Code(s): S80.02XA - Contusion of left knee, initial encounter Additional A&P Information admit to med/surg as inpatient post op from left TKR 04/16 with mechanical fall last week , now with wound dehiscence X ray shows soft tissue effusion without hardware displacement discharge from wound mostly serous some concerning features for PJI may be reported chills with sweats check blood cx prior to starting abx today, ESR, CRP, CBC , CMP Local wound cx taken from discharge, likely to show common skin colonizers, interested in seeing presence of any resistant colonizers planned for wound exploration in OR with Dr. 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
[2020-05-13 20:17] VITALS: BP 128/82; PULSE 79; RESP 17; TEMP 37; O2SAT 100
[2020-05-13 20:34] VITALS: BMI 29.2
[2020-05-13] MEDS: HYDROcodone-acetaminophen 7.5-325 mg Tablet 1 TAB PO (20:42)
[2020-05-13] MEDS: carBAMazepine XR (12 HR) 200 mg Tablet PO (20:43)
--- NOTE | 2020-05-13 21:14 | PC.NURSE ---
Per Dr Ling - pt will be direct admit from ER waiting room. Pt transported by wheelchair to [facility].
--- NOTE | 2020-05-13 21:30 | W.ED.GENADLT ---
HPI - General Adult General: Chief complaint: General Medical Stated complaint: INFECTION IN L KNEE/SENT BY DR STARK Time Seen by Provider: 05/13/20 21:28 PFSH ED PFSH: Medical History Alcohol dependence, in remission Anxiety reaction Bipolar disorder, in partial remission, most recent episode manic Cervical disc disorder with myelopathy of mid-cervical region Chronic headaches CVA (cerebral vascular accident) Depression Erectile dysfunction Gastritis Generalized anxiety disorder Hypertension Mild intellectual disabilities Pancreatitis Seizure Superficial thrombophlebitis Surgical History H/O angioplasty H/O: knee surgery History of cardiac catheterization History of carpal tunnel surgery History of cholecystectomy Status post spinal arthrodesis 12/08/2018 Dr. Mehran [place] C5-C6 ACDFF Family History Father Cancer Heart disease Mother Cancer Heart disease Family/Other Diabetes Brother Diabetes Social History Smoking and tobacco status: current some day smoker Alcohol intake: never Household members: significant other Marital status: Current occupational status: disabled History of recent travel: Yes Current gender identity: Male Course Vital Signs: Vital signs: Vital Signs Temperature 98.6 F 05/13/20 20:17 Pulse Rate 79 05/13/20 20:17 Respiratory Rate 17 05/13/20 20:17 Blood Pressure 128/82 05/13/20 20:17 Pulse Oximetry 100 05/13/20 20:17 Discharge Plan Discharge Patient Disposition: Admitted As Inpatient Admit Provider: Angeli Ling Condition: Good Coding Level of Care Code ED [employer] Consultant for Yomaira Robins
[2020-05-13 23:46] VITALS: BP 124/80; PULSE 91; RESP 18; TEMP 36.8; O2SAT 97
[2020-05-14] VITALS (19 sets, daily range): BP systolic 98–133; BP diastolic 38–83; PULSE 69–105; RESP 14–20; TEMP 36.8–37.1; O2SAT 90–100
--- NOTE | 2020-05-14 05:55 | PC.NURSE ---
IV access This nurse and the nursing team has tried several times to establish IV access with no success. The patient stated he did not want us to try anymore until it is closer to time for his surgery.
--- NOTE | 2020-05-14 08:06 | PC.NURSE ---
It was reported this am that the patient had multiple attempts at IV insertion overnight and he began to refuse the IV at that time. The patient missed his pre-op antibiotic due to this. This RN called and spoke with Dr. Rome and informed her of this and informed her we would have IV access this morning. She verbalizes understanding. No new orders received at this time.
[2020-05-14 08:23] LABS: Basophils % 0.2 %; Eosinophils # 0.1 10^3/uL (0.0-0.8); Eosinophils % 1.3 %; Hematocrit 35.3 % (42.0-52.0); Hemoglobin 11.4 g/dL (11.7-16.6); Lymphocytes # 1.8 10^3/uL (0.8-4.8); Lymphocytes % 18.4 %; Mean Corpuscular HGB Conc 32.3 g/dL (30.0-36.0); Mean Corpuscular Hemoglobin 30.2 pg (28.0-34.0); Mean Corpuscular Volume 93.6 fL (80-94); Mean Platelet Volume 9.4 fL (7.4-10.4); Monocytes # 1.1 10^3/uL (0.2-0.9); Neutrophils # 6.69 10^3/uL (1.8-7.7); Neutrophils % 68.6 %; Nucleated Red Blood Cells % 0 %; Platelet Count 393 10^3/cmm (130-400); Red Blood Count 3.77 10^6/uL (4.1-5.3); Red Cell Distribution Width 12.7 % (12.1-15.1); White Blood Count 9.8 10^3/uL (4.0-10.0)
[2020-05-14] MEDS: HYDROcodone-acetaminophen 7.5-325 mg Tablet 1 TAB PO ×2 (08:29→21:13)
[2020-05-14] MEDS: carBAMazepine XR (12 HR) 200 mg Tablet PO ×2 (08:29→20:22)
[2020-05-14] MEDS: dextrose 5%-sod chloride 0.9% 1,000 ML 75 ML IV (08:30)
[2020-05-14] MEDS: pantoprazole DR 40 mg Tablet PO (08:42)
[2020-05-14 09:36] LABS: Erythrocyte Sedimentation Rate 111 mm/hr (0-10)
--- NOTE | 2020-05-14 12:00 | PC.NURSE ---
Patient to surgery at this time.
--- NOTE | 2020-05-14 12:27 | ANES.PREANE2 ---
Pre-Anesthetic Assessment Pre-Anesthetic Assessment: Height/Weight: Height 1.83 m Weight 97.976 kg Temp Pulse Resp BP Pulse Ox 98.8 F 84 16 119/74 98 05/14/20 12:23 05/14/20 12:23 05/14/20 12:23 05/14/20 12:23 05/14/20 12:23 Preop Diagnosis: Wound Dehiscence left knee Proposed Procedure: Operation Date: 05/14/20 13:15 Proposed Procedures p Incision & Drainage left knee possible poly exchange(Left) - Melyssa Rome MD Last intake: Intake Last Liquid Date 05/13/20 Last Liquid Time 23:50 Last Solid Date 05/13/20 Last Solid Time 11:00 Social: Social History: Alcohol (h/o) and Tobacco Exam: Pre-Anes Outpt Exam: alert, oriented x 3, clear to auscultation bilaterally and regular rate & rhythm Airway: Submandibular: WNL Cervical ROM: WNL MP: 1 Dentition: Partials (upper) and Other (poor dentation) History/ROS: No significant history except as noted Pulmonary: Pulmonary: None reported CV/HEM: CV/HEM: None reported : : None reported Hepatic: Hepatic: None reported GI: GI: GERD (controlled) Metabolic: Metabolic: None reported Musc/skel: Musc/skel: OA/DJD Neuropsych: Neuropsych: Anxiety, Depression and Seizure (last was 3 years ago) Anesthetic Plan: ASA status: 3 Anesthesia: Anesthesia Evaluation and General Risk of > 500 ml blood loss (7ml/kg in children): Yes, adequate IV access and fluids planned Meds/Allergies Current Medications: Current Medications Generic Name Dose Route Start Last Admin Trade Name Freq PRN Reason Stop Dose Admin Hydrocodone Bitart /Acetaminophen 1 tab 05/13/20 20:19 05/14/20 08:29 Hydrocodone-Acet aminophen 7.5-325 Mg Tablet PO 1 tab BID PRN Administration Severe Pain (Scal e Score 7-10) Carbamazepine 200 mg 05/13/20 21:00 05/14/20 08:29 Carbamazepine Xr (12 Hr) 200 Mg Ta blet PO 200 mg TID WILLIE Administration Citalopram Hydrobr omide 40 mg 05/14/20 09:00 05/14/20 08:42 Citalopram 20 Mg Tablet PO Not Given DAILY WILLIE Cefazolin Sodium/D extrose 2 gm in 50 mls @ 100 mls/hr 05/13/20 20:19 05/14/20 08:28 Kefzol IV 100 mls/hr Q8H WILLIE Administration Protocol Dextrose/Sodium Ch loride 1,000 mls @ 75 ml s/hr 05/13/20 22:30 05/14/20 08:30 Dextrose 5%-Sod Chloride 0.9% IV 75 mls/hr .[id number] WILLIE Administration Pantoprazole Sodiu m 40 mg 05/14/20 09:00 05/14/20 08:[address] 40 Mg Tablet PO 40 mg DAILY WILLIE Administration Tamsulosin HCl 0.4 mg 05/14/20 09:00 05/14/20 08:42 Tamsulosin 0.4 M g Capsule PO Not Given DAILY WILLIE PFSH Anesthesia PFSH: Medical History Alcohol dependence, in remission Anxiety reaction Bipolar disorder, in partial remission, most recent episode manic Cervical disc disorder with myelopathy of mid-cervical region Chronic headaches CVA (cerebral vascular accident) Depression Erectile dysfunction Gastritis Generalized anxiety disorder Hypertension Mild intellectual disabilities Pancreatitis Seizure Superficial thrombophlebitis Surgical History H/O angioplasty H/O: knee surgery History of cardiac catheterization History of carpal tunnel surgery History of cholecystectomy Status post spinal arthrodesis 12/08/2018 Dr. Mehran [place] C5-C6 ACDFF Family History Father Cancer Heart disease Mother Cancer Heart disease Family/Other Diabetes Brother Diabetes Social History Smoking and tobacco status: current some day smoker Alcohol intake: never Household members: significant other Marital status: Current occupational status: disabled History of recent travel: Yes Current gender identity: Male Data Anesthesia CBC & Chem 7: 05/14/20 07:38 Other Labs: Laboratory Results - last 48 hr 05/14/20 05/14/20 05/14/20 07:38 07:38 07:38 WBC 9.8 RBC 3.77 L Hgb 11.4 L Hct 35.3 L MCV 93.6 MCH 30.2 MCHC 32.3 RDW 12.7 Plt Count 393 MPV 9.4 Neut % (Auto) 68.6 Lymph % (Auto) 18.4 [place] % (Auto) 11.0 Eos % (Auto) 1.3 Baso % (Auto) 0.2 Neut # (Auto) 6.69 Lymph # (Auto) 1.8 [place] # (Auto) 1.1 H Eos # (Auto) 0.1 Baso # (Auto) 0.0 Nucleated RBC % (auto) 0 Nucleated RBCs # 0.0 ESR 111 H PT 15.60 H INR 1.20 Micro: Microbiology 05/14/20 07:32 Blood Culture - Preliminary Blood SPECIMEN COLLECTED 05/14/20 07:38 Blood Culture - Preliminary Blood SPECIMEN COLLECTED Cardiac Studies: No Data to Display
[2020-05-14] MEDS: CELEcoxib 200 mg Capsule 400 MG PO (12:43)
[2020-05-14] MEDS: sodium chloride 0.9% 1,000 ML 30 ML IV (12:50)
[2020-05-14] MEDS: vancomycin 1,000 MG in sodium chloride 0.9% 250 ML 250 MG IV (13:24)
--- NOTE | 2020-05-14 14:18 | PM.MISC ---
Miscellaneous Note Purpose of Documentation: Initial consultation Note: Please see office note from day of admission, May 13 for information regarding initial consultation and reason for admission to the hospital.
--- NOTE | 2020-05-14 14:19 | W.PM.OPSUD ---
Surgery/Procedure H&P Update DATE OF PROCEDURE: May 14, 2020 DATE H&P PERFORMED: 05/14/20 H&P UPDATE INFORMATION: I have reviewed H&P completed within last 30 days, I have examined patient prior to procedure, No changes to prior documentation and H&P is in [facility] EMR on date indicated PREOP DIAGNOSIS: Wound Dehiscence left knee PLANNED PROCEDURE: Operation Date: 05/14/20 13:15 Proposed Procedures p Incision & Drainage left knee possible poly exchange(Left) - Melyssa Rome MD Related Problem List Diagnoses (1) Traumatic wound dehiscence: Qualifiers: Encounter type: initial encounter Qualified Code(s): T81.33XA - Disruption of traumatic injury wound repair, initial encounter (2) History of total left knee replacement:
[2020-05-14 15:09] LABS: Coronavirus Test Green County Not Detected
[2020-05-14] MEDS: ceFAZolin 1,000 mg SDV 6000 MG IRRIGATION (15:18)
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
[2020-05-14 17:01] LABS: Appearance Synovial Fluid BLOODY (CLEAR); Color Synovial Fluid RED (PALE YELLOW)
[2020-05-14 17:06] LABS: RBC Synovial Fluid 66 10^3/uL (0-0)
[2020-05-14 17:07] LABS: PATH Referal YES; Synovial Fluid Mononuclear # 3.638 10^3/uL
[2020-05-14] MEDS: fentaNYL 50 mcg/mL INJ 2mL IVP ×2 (17:10→17:15)
--- NOTE | 2020-05-14 17:11 | XRR_ITS ---
PROCEDURE INFORMATION: Exam: XR Left Knee Exam date and time: 05/14/2020 5:39 PM Age: 59 years old Clinical indication: Device placement; Joint replacement hardware; Prior surgery; Surgery date: Post-operative (0-2 days); Additional info: Status post revision knee arthroplasty TECHNIQUE: Imaging protocol: XR Left knee. Views: 3 views. Total images: 2 COMPARISON: CR (LOW EXM, ) 05/13/2020 3:25 PM FINDINGS: Tubes, catheters and devices: Status post total knee arthroplasty with good position of the prosthetic components without evidence for loosening or dislocation/subluxation. No visible acute osseous abnormality. Satisfactory anatomic alignment and apposition. Bones/joints: See Tubes, catheters and devices finding. Soft tissues: Overlying skin siddharth. Postoperative soft tissue emphysema. XR/XR knee LT 3V* [id number] IMPRESSION: TKA left knee.
[2020-05-14] MEDS: oxyCODONE 5 mg IR Tab/Cap PO (18:46)
[2020-05-14] MEDS: mupirocin oint 22 gm 1 APPLIC NASAL (19:06)
[2020-05-14] MEDS: calcium carbonate 500 mg Chew Tablet 1000 MG PO (19:06)
[2020-05-14] MEDS: sennosides-docusate Tablet 2 TAB PO (19:06)
[2020-05-14] MEDS: iron polysaccharide complex 150 mg Capsule PO (19:06)
--- NOTE | 2020-05-14 19:48 | P.PN_ITS ---
Subjective Subjective: Interval history: s/p OR visit today, findings discussed with Dr. Rome, fascia interrupted, murky discharge around joint, aspirated and sent for cx. prosthesis retained. ESR elavted >100, afberile, hemodynamically stable Medications: Reviewed: Yes Vitals/I&O/Wt Last Vital Signs Temp 98.7 F 05/14/20 19:32 Pulse 100 05/14/20 19:32 Resp 19 H 05/14/20 19:32 BP 119/70 05/14/20 19:32 Pulse Ox 96 05/14/20 19:32 05/14/20 05/14/20 05/14/20 06:59 14:59 22:59 Intake Total 150 / 150 1560 / 1710 Output Total 200 / 200 1250 / 1450 Balance -50 / -50 310 / 260 Weight last 48 hrs Weight 97.976 kg Weight 97.522 kg Physical Exam Narrative: EXAM NARRATIVE: GEN: Awake, alert and oriented, no acute distress CVS: S1S2 N RS: CTA B/L Abd: Soft, nt/nd , bs+ SALES RECRUITMENT SPECIALIST: no focal neuro deficits Urinary Catheter Management^: F: Cath Placed During This Visit: yes Reason for Continuing Indwelling Catheter: Accurate Measurement of Urinary Output in Critically Ill Patients Urinary Catheter Date of Insertion: 05/14/20 Urinary Catheter Time of Insertion: 14:40 Data : 05/14/20 07:38 Micro: Microbiology 05/14/20 15:05 Gram Stain - Final Knee - Left 05/14/20 07:32 Blood Culture - Preliminary Blood SPECIMEN COLLECTED 05/14/20 07:38 Blood Culture - Preliminary Blood SPECIMEN COLLECTED A&P Assessment and plan (1) Prosthetic joint infection: Status: Acute Qualifiers: Encounter type: initial encounter Qualified Code(s): T84.50XA - Infect ion and inflammatory reaction due to unspecified internal joint prosthesis, initial encounter (2) History of total left knee replacement: Status: Acute (3) Wound dehiscence: Status: Acute (4) Contusion of left knee: Status: Acute Qualifiers: Encounter type: initial encounter Qualified Code(s): S80.02XA - Contusion of left knee, initial encounter Additional A&P Information post op from left TKR 04/16 with mechanical fall last week , now with wound dehiscence X ray shows soft tissue effusion without hardware displacement Concern for PJI given OR findings, elevated ESR, chills OR cx pending will plan for at least 6 weeks of iv abx for PJI, choice of abx dependent on final cx iv cefazolin empriically to continue until then Picc line after 48 hrs negative blood cx Attestations Medical Necessity Statement*: prosthetic joint infection, s/p OR visit today, awaiting OR cx, needs long course iv abx Coding Level of Care Code Acute Stopperer Assembler for Yomaira Robins Diagnoses Prosthetic joint infection T84.50XA Encounter type: initial encounter History of total left knee replacement Z96.652 Wound dehiscence T81.30XA Contusion of left knee S80.02XA Encounter type: initial encounter
[2020-05-14] MEDS: chlorhexidine gluconate 0.12% Btl 473 mL 30 ML MUCOUS MEM (20:22)
[2020-05-15] VITALS (12 sets, daily range): BP systolic 120–134; BP diastolic 71–81; PULSE 74–96; RESP 17–18; TEMP 36.8–37.4; O2SAT 96–98
[2020-05-15] MEDS: oxyCODONE 5 mg IR Tab/Cap PO ×4 (00:13→17:26)
--- NOTE | 2020-05-15 06:35 | PC.NURSE ---
[place] Catheter This nurse removed patient's [place] at 0600. 350 mL clear, pale yellow urine was drained from bag beforehand. 9cc saline removed from balloon. Catheter in tact. Patient tolerated well. Patient was given a urinal at bedside and educated about hitting his call light if he needs any assistance. Will continue to monitor.
[2020-05-15] MEDS: HYDROcodone-acetaminophen 7.5-325 mg Tablet 1 TAB PO ×2 (08:48→20:59)
[2020-05-15] MEDS: calcium carbonate 500 mg Chew Tablet 1000 MG PO ×2 (08:51→17:27)
[2020-05-15] MEDS: aspirin 325 mg EC Tablet PO (08:51)
[2020-05-15] MEDS: cholecalciferol (vitamin D3) 1,000 unit Tablet 1000 UNIT PO (08:51)
[2020-05-15 08:52] LABS: Basophils % 0.2 %; Eosinophils # 0.1 10^3/uL (0.0-0.8); Eosinophils % 0.7 %; Hematocrit 36.2 % (42.0-52.0); Hemoglobin 11.7 g/dL (11.7-16.6); Lymphocytes # 1.8 10^3/uL (0.8-4.8); Mean Corpuscular HGB Conc 32.3 g/dL (30.0-36.0); Mean Corpuscular Hemoglobin 30.1 pg (28.0-34.0); Mean Corpuscular Volume 93.1 fL (80-94); Mean Platelet Volume 9.7 fL (7.4-10.4); Monocytes # 0.8 10^3/uL (0.2-0.9); Monocytes % 7.5 %; Neutrophils # 8.02 10^3/uL (1.8-7.7); Neutrophils % 74.1 %; Nucleated Red Blood Cells % 0 %; Platelet Count 425 10^3/cmm (130-400); Red Blood Count 3.89 10^6/uL (4.1-5.3); Red Cell Distribution Width 12.7 % (12.1-15.1); White Blood Count 10.8 10^3/uL (4.0-10.0)
[2020-05-15] MEDS: citalopram 20 mg Tablet 40 MG PO (08:52)
[2020-05-15] MEDS: carBAMazepine XR (12 HR) 200 mg Tablet PO ×3 (08:52→20:59)
[2020-05-15] MEDS: mupirocin oint 22 gm 1 APPLIC NASAL (08:52)
[2020-05-15] MEDS: tamsulosin 0.4 mg Capsule PO (08:52)
[2020-05-15] MEDS: sennosides-docusate Tablet 2 TAB PO ×2 (08:52→17:28)
[2020-05-15] MEDS: multivitamin therapeutic Tablet 1 TAB PO (08:52)
[2020-05-15] MEDS: pantoprazole DR 40 mg Tablet PO (08:52)
[2020-05-15] MEDS: iron polysaccharide complex 150 mg Capsule PO ×2 (08:52→17:27)
[2020-05-15] MEDS: chlorhexidine gluconate 0.12% Btl 473 mL 30 ML MUCOUS MEM ×2 (08:53→21:00)
[2020-05-15] MEDS: efferdent effervescent 1 EACH DENTAL (08:57)
[2020-05-15] MEDS: dextrose 5%-sod chloride 0.9% 1,000 ML 75 ML IV (08:58)
[2020-05-15 09:23] LABS: Anion Gap 13.6 (5-19); Blood Urea Nitrogen 6 mg/dL (6-20); Calcium 8.6 mg/dL (8.5-10.5); Carbon Dioxide 25 mmol/L (22-29); Chloride 102 mmol/L (98-107); Glomerular Filtration Rate 138.4 mL/min (90-130); Glucose 99 mg/dL (65-115); Osmolality Calculated 282 mOsm/kg (285-295); Potassium 3.6 mmol/L (3.5-5.1); Sodium 137 mmol/L (136-145)
--- NOTE | 2020-05-15 14:03 | P.PN_ITS ---
Subjective Subjective: Interval history: Patient is seen today, and his dressing is removed. His wound remains benign. There is minimal erythema. He is advised the findings at the time of surgery which are an intra-articular infection. I have explained to him that he likely landed on the distal aspect of his wound which opened. This was closed at an outside ER it appears he tore the fascia much more proximal and this was not able to be seen and evaluated at the time of his initial visit. He is advised that he has a joint infection, but at this point, we are hoping to maintain his hardware. Medications: Reviewed: Yes Vitals/I&O/Wt Last Vital Signs Temp 98.5 F 05/15/20 11:42 Pulse 96 05/15/20 11:42 Resp 18 05/15/20 11:48 BP 134/74 05/15/20 11:42 Pulse Ox 97 05/15/20 11:48 05/14/20 05/15/20 05/15/20 22:59 06:59 14:59 Intake Total 2710 / 2860 870 / 870 Output Total 2450 / 2650 2250 / 4900 Balance 260 / 210 -2250 / -2040 870 / 870 Weight last 48 hrs Weight 216 lb Weight 215 lb Physical Exam Const: COMMON NORMALS: no acute distress, average body habitus, patient oriented x3 and alert GENERAL APPEARANCE: cooperative and comfortable ORIENTATION/CONSCIOUSNESS: Yes awake HENMT: COMMON NORMALS: normocephalic and atraumatic HEAD & SCALP: normocephalic and atraumatic Eye: GENERAL EYE: appearance normal, both eyes and all related structures Chest: COMMONS NORMALS: normal inspection of the chest Resp: COMMON NORMALS: normal respiratory effort EFFORT & INSPECTION: Yes able to speak in complete sentences and Yes symmetric chest movement Extremity: LEFT LOWER EXTREMITY: Yes knee joint (Incision is intact. Dressings are removed.) Left knee: Yes inspection (There is less erythema about the knee.), Yes palpation (Minimal tenderness to palpation.), Yes ROM (Not evaluated.) and Yes neurovascular exam (Intact with no evidence of DVT.) Neuro: COMMON NORMALS: patient oriented x3 SENSORIUM/ORIENTATION: Yes alert Psych: COMMON NORMALS: mental status grossly normal APPEARANCE: Yes grossly normal ATTITUDE: Yes calm and Yes engaged ATTENTION/CONCENTRATION: Yes attention grossly intact Skin: COMMON NORMALS: no rashes or lesions noted GENERAL SKIN EXAM: no rashes or lesions noted Urinary Catheter Management^: F: Cath Placed During This Visit: yes, but has since been removed by the nurse Reason for Continuing Indwelling Catheter: Perioperative Use in Selected Ulises geries Urinary Catheter Date of Insertion: 05/14/20 Urinary Catheter Time of Insertion: 14:40 Date Urinary Catheter Removed: 05/15/20 Time Urinary Catheter Discontinued: 06:00 Data : 05/15/20 07:55 05/15/20 07:55 Micro: Microbiology 05/13/20 17:55 Wound Culture - Preliminary Knee - #1 Staphylococcus aureus 05/14/20 07:32 Blood Culture - Preliminary Blood NEGATIVE TO DATE 05/14/20 07:38 Blood Culture - Preliminary Blood NEGATIVE TO DATE 05/14/20 15:05 Gram Stain - Final Knee - Left A&P Assessment and plan (1) Prosthetic joint infection: Patient is advised that he did have purulent fluid within his knee joint. This was more of a murky serosanguineous fluid as opposed to david pus. Soft tissues were debrided and the wound was copiously irrigated. The polyethylene exchange was accomplished. We were able to primarily close the wound. Plan is that he will be weightbearing as tolerated. Flexion is to be limited to 90 degrees. He is to have antibiotic therapy per the hospitalist team. He will follow up with me early May. Status: Acute Qualifiers: Encounter type: initial encounter Qualified Code(s): T84.50XA - Infection and inflammatory reaction due to unspecified internal joint prosthesis, initial encounter (2) Traumatic wound dehiscence: Status: Acute Qualifiers: Encounter type: initial encounter Qualified Code(s): T81.33XA - Disruption of traumatic injury wound repair, initial encounter (3) History of total left knee replacement: Status: Acute Attestations Medical Necessity Statement*: Patient requires ongoing physician for ongoing antibiotics and to determine appropriate antibiotic therapy. He will require full treatment for a prosthetic joint infection with maintenance of components. Coding Level of Care Code Acute Public Aid Eligibility Assistant for Yomaira Fwd Exam Comprehensive Diagnoses Prosthetic joint infection T84.50XA Encounter type: initial encounter Traumatic wound dehiscence T81.33XA Encounter type: initial encounter History of total left knee replacement Z96.652
--- NOTE | 2020-05-15 17:31 | PC.RESP ---
Smoking Cessation information sent to patient.
--- NOTE | 2020-05-15 18:27 | P.PN_ITS ---
Subjective Subjective: Interval history: no new complaints, participating with PT, ambulating with walker, afberile Medications: Reviewed: Yes Vitals/I&O/Wt Last Vital Signs Temp 98.9 F 05/15/20 15:34 Pulse 81 05/15/20 15:34 Resp 18 05/15/20 17:26 BP 126/71 05/15/20 15:34 Pulse Ox 98 05/15/20 17:26 05/15/20 05/15/20 05/15/20 06:59 14:59 22:59 Intake Total 920 / 920 Output Total 2250 / 4900 400 / 400 Balance -2250 / -2040 920 / 920 -400 / 520 Weight last 48 hrs Weight 97.976 kg Physical Exam Narrative: EXAM NARRATIVE: GEN: Awake, alert and oriented, no acute distress CVS: S1S2 N RS: CTA B/L Abd: Soft, nt/nd , bs+ COORDINATOR OF LIBRARY SERVICES: no focal neuro deficits Urinary Catheter Management^: F: Cath Placed During This Visit: yes, but has since been removed by the nurse Reason for Continuing Indwelling Catheter: Perioperative Use in Selected Surgeries Urinary Catheter Date of Insertion: 05/14/20 Urinary Catheter Time of Insertion: 14:40 Date Urinary Catheter Removed: 05/15/20 Time Urinary Catheter Discontinued: 06:00 Data : 05/16/20 05:42 05/15/20 07:55 Micro: Microbiology 05/13/20 17:55 Wound Culture - Preliminary Knee - #1 Staphylococcus aureus 05/14/20 07:32 Blood Culture - Preliminary Blood NEGATIVE TO DATE 05/14/20 07:38 Blood Culture - Preliminary Blood NEGATIVE TO DATE 05/14/20 15:05 Gram Stain - Final Knee - Left A&P Assessment and plan (1) Prosthetic joint infection: Status: Acute Qualifiers: Encounter type: initial encounter Qualified Code(s): T84.50XA - Infection and inflammatory reaction due to unspecified internal joint prosthesis, initial encounter (2) History of total left knee replacement: Status: Acute (3) Wound dehiscence: Status: Deleted (4) Contusion of left knee: Status: Acute Qualifiers: Encounter type: initial encounter Qualified Code(s): S80.02XA - Contusion of left knee, initial encounter Additional A&P Information post op from left TKR 04/16 with mechanical fall last week , now with wound dehiscence and PJI X ray shows soft tissue effusion without hardware displacement Preusmed PJI given OR findings, elevated ESR >100, elavted synovial fluid count ~60K, path findings of acute synovitis OR cx pending, thus far with NGTD, gram stain negative superficial cx with staph aureus thus far, pending susceptibility to establish MSSA vs MRSA will plan for at least 6 weeks of iv abx for PJI, choice of abx dependent on final cx If OR cx remains negative, likely culprit to be staph aureus If MSSA, will plan for 6 weeks iv cefazolin , if MRSA plan for 6 weeks of iv vancomycin iv cefazolin empriically to continue until then Picc line after 48 hrs negative blood cx adjunctive rifampin likely to be added closer to discharge, assuming OR cx do not reveal a different organism Dispo: patient prefers to return home with , declined SNF Attestations Medical Necessity Statement*: continued admission for PJI, need for iv abx, Picc line placement Coding Level of Care Code Acute [place] for Yomaira Robins Diagnoses Prosthetic joint infection T84.50XA Encounter type: initial encounter History of total left knee replacement Z96.652 Wound dehiscence T81.30XA Contusion of left knee S80.02XA Encounter type: initial encounter
[2020-05-16] VITALS (11 sets, daily range): BP systolic 120–139; BP diastolic 73–82; PULSE 74–83; RESP 16–20; TEMP 36.8–37.4; O2SAT 96–97
[2020-05-16] MEDS: dextrose 5%-sod chloride 0.9% 1,000 ML 75 ML IV (00:54)
[2020-05-16] MEDS: oxyCODONE 5 mg IR Tab/Cap PO ×6 (00:58→23:08)
[2020-05-16 06:00] LABS: Basophils % 0.2 %; Eosinophils # 0.2 10^3/uL (0.0-0.8); Hematocrit 34.6 % (42.0-52.0); Hemoglobin 10.9 g/dL (11.7-16.6); Lymphocytes # 1.6 10^3/uL (0.8-4.8); Lymphocytes % 16.8 %; Mean Corpuscular HGB Conc 31.5 g/dL (30.0-36.0); Mean Corpuscular Hemoglobin 30.1 pg (28.0-34.0); Mean Corpuscular Volume 95.6 fL (80-94); Mean Platelet Volume 9.7 fL (7.4-10.4); Monocytes # 0.9 10^3/uL (0.2-0.9); Monocytes % 9.5 %; Neutrophils # 6.82 10^3/uL (1.8-7.7); Neutrophils % 71.2 %; Nucleated Red Blood Cells % 0 %; Platelet Count 390 10^3/cmm (130-400); Red Blood Count 3.62 10^6/uL (4.1-5.3); Red Cell Distribution Width 12.9 % (12.1-15.1); White Blood Count 9.6 10^3/uL (4.0-10.0)
[2020-05-16] MEDS: cholecalciferol (vitamin D3) 1,000 unit Tablet 1000 UNIT PO (09:26)
[2020-05-16] MEDS: chlorhexidine gluconate 0.12% Btl 473 mL 30 ML MUCOUS MEM ×4 (09:26→20:58)
[2020-05-16] MEDS: aspirin 325 mg EC Tablet PO (09:26)
[2020-05-16] MEDS: calcium carbonate 500 mg Chew Tablet 1000 MG PO ×2 (09:26→18:34)
[2020-05-16] MEDS: sennosides-docusate Tablet 2 TAB PO ×2 (09:26→18:34)
[2020-05-16] MEDS: iron polysaccharide complex 150 mg Capsule PO ×2 (09:27→18:34)
[2020-05-16] MEDS: tamsulosin 0.4 mg Capsule PO (09:27)
[2020-05-16] MEDS: multivitamin therapeutic Tablet 1 TAB PO (09:27)
[2020-05-16] MEDS: carBAMazepine XR (12 HR) 200 mg Tablet PO ×3 (09:27→20:57)
[2020-05-16] MEDS: CELEcoxib 200 mg Capsule PO ×2 (09:27→20:57)
[2020-05-16] MEDS: pantoprazole DR 40 mg Tablet PO (09:27)
[2020-05-16] MEDS: citalopram 20 mg Tablet 40 MG PO (09:27)
--- NOTE | 2020-05-16 09:59 | DCPLANNER ---
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 National Sales Trainer tells him that's fine and that's why we're here, if it comes to needing to appeal, we will certainly help. Copy provided.
--- NOTE | 2020-05-16 13:55 | P.PN_ITS ---
Subjective Subjective: Interval history: This morning patient was examined, he has no particular complaints, no fevers, chills, nausea, vomiting, Medications: Reviewed: Yes Vitals/I&O/Wt Last Vital Signs Temp 99.3 F 05/16/20 12:00 Pulse 81 05/16/20 12:00 Resp 18 05/16/20 13:46 BP 122/76 05/16/20 12:00 Pulse Ox 97 05/16/20 12:00 05/15/20 05/16/20 05/16/20 22:59 06:59 14:59 Intake Total 1160 / 2080 60 / 2140 Output Total 1450 / 1450 300 / 1750 900 / 900 Balance -290 / 630 -240 / 390 -900 / -900 Physical Exam Const: COMMON NORMALS: no acute distress and patient oriented x3 HENMT: COMMON NORMALS: normocephalic HEAD & SCALP: normocephalic Neck/C-Spine: COMMON NORMALS: no JVD Resp: COMMON NORMALS: normal respiratory effort, No retractions, No use of accessory muscles and clear to auscultation bilaterally AUSCULTATION: clear to auscultation bilaterally Cardio: COMMON NORMALS: no JVD, regular rate, regular rhythm, S1 normal heart sound present and S2 normal heart sound present RATE: regular rate RHYTHM: regular rhythm HEART SOUNDS: S1 normal heart sound present and S2 normal heart sound present GI: COMMON NORMALS: Normal to inspection, nondistended, normoactive bowel sounds present, Soft to palpation, non-tender, No hepatosplenomegaly present, no masses and no bruits PALPATION: Yes Soft to palpation and Yes No hepatosplenomegaly present Extremity: COMMON NORMALS: capillary refill normal, no clubbing, cyanosis or edema, no calf tenderness and no pedal edema NARRATIVE EXTREMITY EXAM: Left knee in a binder Neuro: COMMON NORMALS: patient oriented x3 Psych: COMMON NORMALS: mental status grossly normal Urinary Catheter Management^: F: Cath Placed During This Visit: yes, but has since been removed by the nurse Reason for Continuing Indwelling Catheter: Perioperative Use in Selected Surgeries Urinary Catheter Date of Insertion: 05/14/20 Urinary Catheter Time of Insertion: 14:40 Date Urinary Catheter Removed: 05/15/20 Time Urinary Catheter Discontinued: 06:00 Data : 05/16/20 05:42 05/15/20 07:55 Micro: Microbiology 05/13/20 17:55 Wound Culture - Preliminary Knee - #1 Staphylococcus aureus 05/14/20 07:32 Blood Culture - Preliminary Blood NEGATIVE TO DATE 05/14/20 07:38 Blood Culture - Preliminary Blood NEGATIVE TO DATE A&P Assessment and plan (1) Prosthetic joint infection: Status: Acute Qualifiers: Encounter type: initial encounter Qualified Code(s): T84.50XA - Infection and inflammatory reaction due to unspecified internal joint prosthesis, initial encounter (2) History of total left knee replacement: Status: Acute (3) Wound dehiscence: Status: Deleted (4) Contusion of left knee: Status: Acute Qualifiers: Encounter type: initial encounter Qualified Code(s): S80.02XA - Contusion of left knee, initial encounter Additional A&P Information post op from left TKR 04/16 with mechanical fall last week , now with wound dehiscence and PJI X ray shows soft tissue effusion without hardware displacement Preusmed PJI given OR findings, elevated ESR >100, elavted synovial fluid count ~60K, path findings of acute synovitis OR cx pending, thus far with NGTD, gram stain negative superficial cx with staph aureus thus far, pending susceptibility to establish MSSA vs MRSA will plan for at least 6 weeks of iv abx for PJI, choice of abx dependent on final cx If OR cx remains negative, likely culprit to be staph aureus If MSSA, will plan for 6 weeks iv cefazolin , if MRSA plan for 6 weeks of iv vancomycin iv cefazolin empriically to continue until then Picc line after 48 hrs negative blood cx, apparently PICC line cannot be placed until Wednesday adjunctive rifampin likely to be added closer to discharge, assuming OR cx do not reveal a different organism Dispo: patient prefers to return home with HH, declined SNF Attestations Medical Necessity Statement*: Patient requires hospitalization, for prosthetic joint infection Coding Level of Care Code Acute Compound Specialist for g Fwd Diagnoses Prosthetic joint infection T84.50XA Encounter type: initial encounter History of total left knee replacement Z96.652 Wound dehiscence T81.30XA Contusion of left knee S80.02XA Encounter type: initial encounter
[2020-05-17] VITALS (11 sets, daily range): BP systolic 107–133; BP diastolic 57–78; PULSE 74–90; RESP 16–18; TEMP 36.4–37; O2SAT 96–99
[2020-05-17] MEDS: oxyCODONE 5 mg IR Tab/Cap PO ×5 (04:56→22:58)
[2020-05-17 05:59] LABS: Basophils % 0.2 %; Eosinophils # 0.4 10^3/uL (0.0-0.8); Hematocrit 35.4 % (42.0-52.0); Hemoglobin 11.3 g/dL (11.7-16.6); Lymphocytes # 1.8 10^3/uL (0.8-4.8); Lymphocytes % 20.4 %; Mean Corpuscular HGB Conc 31.9 g/dL (30.0-36.0); Mean Corpuscular Hemoglobin 30.3 pg (28.0-34.0); Mean Corpuscular Volume 94.9 fL (80-94); Mean Platelet Volume 9.9 fL (7.4-10.4); Monocytes # 0.8 10^3/uL (0.2-0.9); Monocytes % 8.7 %; Neutrophils # 5.98 10^3/uL (1.8-7.7); Neutrophils % 66.3 %; Nucleated Red Blood Cells % 0 %; Platelet Count 447 10^3/cmm (130-400); Red Blood Count 3.73 10^6/uL (4.1-5.3); Red Cell Distribution Width 13.1 % (12.1-15.1)
[2020-05-17 06:38] LABS: Alanine Aminotransferase 50 U/L (0-41); Alkaline Phosphatase 165 IU/L (40-130); Anion Gap 14.7 (5-19); Aspartate Amino Transferase 28 U/L (0-40); Blood Urea Nitrogen 9 mg/dL (6-20); Carbon Dioxide 25 mmol/L (22-29); Chloride 107 mmol/L (98-107); Globulin 3.6 g/dL (1.3-4.6); Glomerular Filtration Rate 99.3 mL/min (90-130); Glucose 90 mg/dL (65-115); Osmolality Calculated 294 mOsm/kg (285-295); Potassium 3.7 mmol/L (3.5-5.1); Sodium 143 mmol/L (136-145); Total Bilirubin 0.2 mg/dL (0.15-1.2); Total Protein 6.6 g/dL (6.6-8.7)
[2020-05-17] MEDS: citalopram 20 mg Tablet 40 MG PO (09:06)
[2020-05-17] MEDS: carBAMazepine XR (12 HR) 200 mg Tablet PO ×3 (09:06→20:03)
[2020-05-17] MEDS: chlorhexidine gluconate 0.12% Btl 473 mL 30 ML MUCOUS MEM ×3 (09:06→18:25)
[2020-05-17] MEDS: pantoprazole DR 40 mg Tablet PO (09:06)
[2020-05-17] MEDS: cholecalciferol (vitamin D3) 1,000 unit Tablet 1000 UNIT PO (09:07)
[2020-05-17] MEDS: calcium carbonate 500 mg Chew Tablet 1000 MG PO ×2 (09:07→18:25)
[2020-05-17] MEDS: aspirin 325 mg EC Tablet PO (09:07)
[2020-05-17] MEDS: tamsulosin 0.4 mg Capsule PO (09:07)
[2020-05-17] MEDS: multivitamin therapeutic Tablet 1 TAB PO (09:07)
[2020-05-17] MEDS: iron polysaccharide complex 150 mg Capsule PO ×2 (09:07→18:26)
--- NOTE | 2020-05-17 15:37 | PM.PN ---
Subjective Subjective: Interval history: This morning patient was examined, he is working with physical therapy, he has no complaints, Medications: Reviewed: Yes Vitals/I&O/Wt Last Vital Signs Temp 98.1 F 05/17/20 11:42 Pulse 85 05/17/20 11:42 Resp 18 05/17/20 13:12 BP 107/57 05/17/20 11:42 Pulse Ox 97 05/17/20 11:42 05/17/20 05/17/20 05/17/20 06:59 14:59 22:59 Intake Total 60 / 180 360 / 360 Output Total 300 / 1700 Balance -240 / -1520 360 / 360 Physical Exam Const: COMMON NORMALS: no acute distress and patient oriented x3 HENMT: COMMON NORMALS: normocephalic HEAD & SCALP: normocephalic Neck/C-Spine: COMMON NORMALS: no JVD Resp: COMMON NORMALS: normal respiratory effort, No retractions, No use of accessory muscles and clear to auscultation bilaterally AUSCULTATION: clear to auscultation bilaterally Cardio: COMMON NORMALS: no JVD, regular rate, regular rhythm, S1 normal heart sound present and S2 normal heart sound present RATE: regular rate RHYTHM: regular rhythm HEART SOUNDS: S1 normal heart sound present and S2 normal heart sound present GI: COMMON NORMALS: Normal to inspection, nondistended, normoactive bowel sounds present, Soft to palpation, non-tender, No hepatosplenomegaly present, no masses and no bruits PALPATION: Yes Soft to palpation and Yes No hepatosplenomegaly present Extremity: COMMON NORMALS: capillary refill normal, no clubbing, cyanosis or edema, no calf tenderness and no pedal edema NARRATIVE EXTREMITY EXAM: Left knee in a binder Neuro: COMMON NORMALS: patient oriented x3 Psych: COMMON NORMALS: mental status grossly normal Urinary Catheter Management^: F: Cath Placed During This Visit: yes, but has since been removed by the nurse Reason for Continuing Indwelling Catheter: Perioperative Use in Selected Surgeries Urinary Catheter Date of Insertion: 05/14/20 Urinary Catheter Time of Insertion: 14:40 Date Urinary Catheter Removed: 05/15/20 Time Urinary Catheter Discontinued: 06:00 Data : 05/17/20 05:19 05/17/20 05:19 Micro: Microbiology 05/14/20 15:05 Gram Stain - Final Knee - Left Anaerobic Culture - Preliminary Wound Culture - Final Staphylococcus aureus 05/13/20 17:55 Wound Culture - Final Knee - #1 Staphylococcus aureus A&P Assessment and plan (1) Prosthetic joint infection: Status: Acute Qualifiers: Encounter type: initial encounter Qualified Code(s): T84.50XA - Infection and inflammatory reaction due to unspecified internal joint prosthesis, initial encounter (2) History of total left knee replacement: Status: Acute (3) Wound dehiscence: Status: Deleted (4) Contusion of left knee: Status: Acute Qualifiers: Encounter type: initial encounter Qualified Code(s): S80.02XA - Contusion of left knee, initial encounter Additional A&P Information post op from left TKR 04/16 with mechanical fall last week , now with wound dehiscence and PJI X ray shows soft tissue effusion without hardware displacement Preusmed PJI given OR findings, elevated ESR >100, elavted synovial fluid count ~60K, path findings of acute synovitis OR cx pending, thus far with NGTD, gram stain negative superficial cx with staph aureus thus far, pending susceptibility to establish MSSA vs MRSA will plan for at least 6 weeks of iv abx for PJI, choice of abx dependent on final cx If OR cx shows staph aureus If MSSA, will plan for 6 weeks iv cefazolin , if MRSA plan for 6 weeks of iv vancomycin iv cefazolin empriically to continue until then Picc line after 48 hrs negative blood cx, apparently PICC line cannot be placed until Wednesday adjunctive rifampin likely to be added closer to discharge, assuming OR cx do not reveal a different organism Dispo: patient prefers to return home with , declined SNF Full code Aspirin for DVT prophylaxis Attestations Medical Necessity Statement*: Patient requires hospitalization for prosthetic joint infection, requiring antibiotic therapy, Coding Level of Care Code Acute Rope Making Machine Operator for [facility] Fwd Diagnoses Prosthetic joint infection T84.50XA Encounter type: initial encounter History of total left knee replacement Z96.652 Wound dehiscence T81.30XA Contusion of left knee S80.02XA Encounter type: initial encounter
[2020-05-18] VITALS (11 sets, daily range): BP systolic 102–116; BP diastolic 63–72; PULSE 69–87; RESP 16–20; TEMP 36.6–36.9; O2SAT 92–98
[2020-05-18] MEDS: oxyCODONE 5 mg IR Tab/Cap PO ×5 (05:34→23:09)
[2020-05-18 06:28] LABS: Basophils % 0.2 %; Eosinophils # 0.3 10^3/uL (0.0-0.8); Eosinophils % 3.5 %; Hematocrit 35.9 % (42.0-52.0); Hemoglobin 11.3 g/dL (11.7-16.6); Lymphocytes # 1.6 10^3/uL (0.8-4.8); Lymphocytes % 18.3 %; Mean Corpuscular HGB Conc 31.5 g/dL (30.0-36.0); Mean Corpuscular Hemoglobin 29.7 pg (28.0-34.0); Mean Corpuscular Volume 94.5 fL (80-94); Mean Platelet Volume 9.9 fL (7.4-10.4); Monocytes # 0.7 10^3/uL (0.2-0.9); Monocytes % 7.7 %; Neutrophils # 6.23 10^3/uL (1.8-7.7); Neutrophils % 69.7 %; Nucleated Red Blood Cells % 0 %; Platelet Count 488 10^3/cmm (130-400); White Blood Count 8.9 10^3/uL (4.0-10.0)
[2020-05-18 06:36] LABS: Alanine Aminotransferase 54 U/L (0-41); Albumin Level 3.3 g/dL (3.5-5.2); Alkaline Phosphatase 153 IU/L (40-130); Anion Gap 13.8 (5-19); Aspartate Amino Transferase 35 U/L (0-40); Blood Urea Nitrogen 11 mg/dL (6-20); Carbon Dioxide 27 mmol/L (22-29); Chloride 104 mmol/L (98-107); Globulin 3.5 g/dL (1.3-4.6); Glomerular Filtration Rate 115.8 mL/min (90-130); Glucose 93 mg/dL (65-115); Osmolality Calculated 291 mOsm/kg (285-295); Potassium 3.8 mmol/L (3.5-5.1); Sodium 141 mmol/L (136-145); Total Bilirubin 0.2 mg/dL (0.15-1.2); Total Protein 6.8 g/dL (6.6-8.7)
[2020-05-18 07:32] LABS: Magnesium 2.2 mg/dL (1.7-2.3); Phosphorus 3.4 mg/dL (2.5-4.5)
[2020-05-18] MEDS: multivitamin therapeutic Tablet 1 TAB PO (09:04)
[2020-05-18] MEDS: iron polysaccharide complex 150 mg Capsule PO ×2 (09:04→17:11)
[2020-05-18] MEDS: aspirin 325 mg EC Tablet PO (09:05)
[2020-05-18] MEDS: calcium carbonate 500 mg Chew Tablet 1000 MG PO ×2 (09:05→17:11)
[2020-05-18] MEDS: tamsulosin 0.4 mg Capsule PO (09:05)
[2020-05-18] MEDS: carBAMazepine XR (12 HR) 200 mg Tablet PO ×3 (09:05→21:03)
[2020-05-18] MEDS: pantoprazole DR 40 mg Tablet PO (09:05)
[2020-05-18] MEDS: citalopram 20 mg Tablet 40 MG PO (09:05)
[2020-05-18] MEDS: cholecalciferol (vitamin D3) 1,000 unit Tablet 1000 UNIT PO (09:05)
--- NOTE | 2020-05-18 15:05 | DCPLANNER ---
Pg 2 of IM updated and reviewed with pt. No questions, copy provided.
--- NOTE | 2020-05-18 15:52 | P.PN_ITS ---
Subjective Subjective: Interval history: Patient is doing well, his only complaint is diarrhea overnight, no fevers, chills, nausea, vomiting, no abdominal pain Medications: Reviewed: Yes Vitals/I&O/Wt Last Vital Signs Temp 98.3 F 05/18/20 15:16 Pulse 74 05/18/20 15:16 Resp 18 05/18/20 15:16 BP 116/72 05/18/20 15:16 Pulse Ox 97 05/18/20 15:16 05/18/20 05/18/20 05/18/20 06:59 14:59 22:59 Intake Total 60 / 900 380 / 380 Output Total 200 / 400 Balance -140 / 500 380 / 380 Physical Exam Const: COMMON NORMALS: no acute distress and patient oriented x3 HENMT: COMMON NORMALS: normocephalic HEAD & SCALP: normocephalic Neck/C-Spine: COMMON NORMALS: no JVD Resp: COMMON NORMALS: normal respiratory effort, No retractions, No use of accessory muscles and clear to auscultation bilaterally AUSCULTATION: clear to auscultation bilaterally Cardio: COMMON NORMALS: no JVD, regular rate, regular rhythm, S1 normal heart sound present and S2 normal heart sound present RATE: regular rate RHYTHM: regular rhythm HEART SOUNDS: S1 normal heart sound present and S2 normal heart sound present GI: COMMON NORMALS: Normal to inspection, nondistended, normoactive bowel sounds present, Soft to palpation, non-tender, No hepatosplenomegaly present, no masses and no bruits PALPATION: Yes Soft to palpation and Yes No hepat osplenomegaly present Extremity: COMMON NORMALS: capillary refill normal, no clubbing, cyanosis or edema, no calf tenderness and no pedal edema NARRATIVE EXTREMITY EXAM: Left knee in a binder Neuro: COMMON NORMALS: patient oriented x3 Psych: COMMON NORMALS: mental status grossly normal Urinary Catheter Management^: F: Cath Placed During This Visit: yes, but has since been removed by the nurse Reason for Continuing Indwelling Catheter: Perioperative Use in Selected Surgeries Urinary Catheter Date of Insertion: 05/14/20 Urinary Catheter Time of Insertion: 14:40 Date Urinary Catheter Removed: 05/15/20 Time Urinary Catheter Discontinued: 06:00 Data : 05/18/20 05:39 05/18/20 05:39 Micro: Microbiology 05/14/20 15:05 Gram Stain - Final Knee - Left Anaerobic Culture - Preliminary Wound Culture - Final Staphylococcus aureus A&P Assessment and plan (1) Prosthetic joint infection: Status: Acute Qualifiers: Encounter type: initial encounter Qualified Code(s): T84.50XA - Infection and inflammatory reaction due to unspecified internal joint prosthesis, initial encounter (2) History of total left knee replacement: Status: Acute (3) Wound dehiscence: Status: Deleted (4) Contusion of left knee: Status: Acute Qualifiers: Encounter type: initial encounter Qualified Code(s): S80.02XA - Contusion of left knee, initial encounter Additional A&P Information Antibiotic associated diarrhea, order C. difficile post op from left TKR 04/16 with mechanical fall last week , now with wound dehiscence and PJI X ray shows soft tissue effusion without hardware displacement Preusmed PJI given OR findings, elevated ESR >100, elavted synovial fluid count ~60K, path findings of acute synovitis OR cx pending, thus far with NGTD, gram stain negative superficial cx with staph aureus thus far, pending susceptibility to establish MSSA vs MRSA will plan for at least 6 weeks of iv abx for PJI, choice of abx dependent on final cx If OR cx shows staph aureus If MSSA, will plan for 6 weeks iv cefazolin , if MRSA plan for 6 weeks of iv vancomycin iv cefazolin empriically to continue until then Picc line after 48 hrs negative blood cx, apparently PICC line cannot be placed until Wednesday adjunctive rifampin likely to be added closer to discharge, assuming OR cx do not reveal a different organism Dispo: patient prefers to return home with , declined SNF Full code Aspirin for DVT prophylaxis Attestations Medical Necessity Statement*: Patient requires hospitalization for prosthetic joint infection, requiring antibiotic therapy, PICC line placement Coding Level of Care Code Acute Integrity Assessor for [facility] Fwd Diagnoses Prosthetic joint infection T84.50XA Encounter type: initial encounter History of total left knee replacement Z96.652 Wound dehiscence T81.30XA Contusion of left knee S80.02XA Encounter type: initial encounter
[2020-05-18] MEDS: efferdent effervescent 1 EACH DENTAL (17:39)
[2020-05-18] MEDS: CELEcoxib 200 mg Capsule PO (21:08)
[2020-05-19] VITALS (10 sets, daily range): BP systolic 103–121; BP diastolic 62–78; PULSE 73–86; RESP 16–20; TEMP 36.7–37.2; O2SAT 95–98
[2020-05-19] MEDS: oxyCODONE 5 mg IR Tab/Cap PO ×4 (04:48→20:47)
--- NOTE | 2020-05-19 06:00 | PC.NURSE ---
patient summary Patient has slept well tonight. He has complained of pain mostly 7/10. He was given oxycodone twice this shift. His dressing was changed this shift x2. He has red tinged drainage. Dressing is needing changed atleast twice a shift. Overall his incision looks great. siddharth are intact. No concerns this shift.
[2020-05-19 06:16] LABS: Basophils % 0.3 %; Eosinophils # 0.2 10^3/uL (0.0-0.8); Eosinophils % 3.8 %; Hematocrit 35.9 % (42.0-52.0); Hemoglobin 11.3 g/dL (11.7-16.6); Lymphocytes # 1.2 10^3/uL (0.8-4.8); Lymphocytes % 19.5 %; Mean Corpuscular HGB Conc 31.5 g/dL (30.0-36.0); Mean Corpuscular Hemoglobin 29.7 pg (28.0-34.0); Mean Corpuscular Volume 94.5 fL (80-94); Mean Platelet Volume 9.7 fL (7.4-10.4); Monocytes # 0.7 10^3/uL (0.2-0.9); Monocytes % 11.5 %; Neutrophils # 4.12 10^3/uL (1.8-7.7); Neutrophils % 64.6 %; Nucleated Red Blood Cells % 0 %; Platelet Count 521 10^3/cmm (130-400); Red Cell Distribution Width 12.9 % (12.1-15.1); White Blood Count 6.4 10^3/uL (4.0-10.0)
[2020-05-19 06:40] LABS: Alanine Aminotransferase 60 U/L (0-41); Albumin Level 3.1 g/dL (3.5-5.2); Alkaline Phosphatase 160 IU/L (40-130); Anion Gap 9.7 (5-19); Aspartate Amino Transferase 43 U/L (0-40); Blood Urea Nitrogen 11 mg/dL (6-20); Carbon Dioxide 29 mmol/L (22-29); Chloride 104 mmol/L (98-107); Globulin 3.8 g/dL (1.3-4.6); Glomerular Filtration Rate 115.8 mL/min (90-130); Glucose 106 mg/dL (65-115); Magnesium 2.3 mg/dL (1.7-2.3); Osmolality Calculated 288 mOsm/kg (285-295); Phosphorus 2.9 mg/dL (2.5-4.5); Potassium 3.7 mmol/L (3.5-5.1); Sodium 139 mmol/L (136-145); Total Bilirubin 0.3 mg/dL (0.15-1.2); Total Protein 6.9 g/dL (6.6-8.7)
[2020-05-19] MEDS: calcium carbonate 500 mg Chew Tablet 1000 MG PO ×2 (08:08→17:44)
[2020-05-19] MEDS: tamsulosin 0.4 mg Capsule PO (08:08)
[2020-05-19] MEDS: iron polysaccharide complex 150 mg Capsule PO ×2 (08:09→17:44)
[2020-05-19] MEDS: aspirin 325 mg EC Tablet PO (08:09)
[2020-05-19] MEDS: pantoprazole DR 40 mg Tablet PO (08:09)
[2020-05-19] MEDS: citalopram 20 mg Tablet 40 MG PO (08:09)
[2020-05-19] MEDS: multivitamin therapeutic Tablet 1 TAB PO (08:09)
[2020-05-19] MEDS: cholecalciferol (vitamin D3) 1,000 unit Tablet 1000 UNIT PO (08:09)
[2020-05-19] MEDS: carBAMazepine XR (12 HR) 200 mg Tablet PO ×3 (08:09→20:42)
--- NOTE | 2020-05-19 08:27 | USR_ITS ---
PROCEDURE INFORMATION: Exam: US Abdomen Complete Exam date and time: 05/19/2020 11:15 AM Age: 59 years old Clinical indication: Abnormal findings; Abnormal lab test; Elevated liver enzymes; Prior surgery; Surgery type: S/P cholecystectomy (unclear when); Additional info: Transaminitis, ? hepatitis vs biliary obstruction TECHNIQUE: Imaging protocol: Real-time ultrasound of the abdomen with image documentation. COMPARISON: No relevant prior studies available. FINDINGS: Liver: The liver is diffusely increased in echogenicity consistent with fatty infiltration. Gallbladder: The gallbladder has been surgically removed. Common bile duct: Common bile duct is normal in caliber measuring 3 mm. Pancreas: Pancreas is not visualized secondary to overlying bowel gas. Right kidney: Right pelvic kidney. Mild fullness of the right renal pelvis. This was seen on the prior CT scan dated 05/19/2013 as well. Left kidney: Left kidney is normal. Spleen: Normal. No splenomegaly. Bladder: Bilateral urine jets are visualized. Aorta: Proximal abdominal aorta measures 1.8 cm in AP dimension. Mid abdominal aorta measures 1.8 cm in AP dimension. Inferior vena cava: IVC is unremarkable and measures 1.3 cm in AP dimension. Other findings: Technically difficult study secondary to a large amount of overlying bowel gas in this patient. US/US abdomen complete* [id number] IMPRESSION: 1. There is a right pelvic kidney with mild fullness of the right renal pelvis. 2. Fatty infiltration of the liver. 3. Patient is status post cholecystectomy.
[2020-05-19 09:14] LABS: Hepatitis A Antibody IgM Non-Reactive (Nonreactive); Hepatitis B Core AB, Total Non-Reactive (Nonreactive); Hepatitis B Surface AB 3.5 (0-8.5); Hepatitis B Surface Antigen Non-Reactive (Nonreactive); Hepatitis C Virus Antibody Non-Reactive (Nonreactive)
--- NOTE | 2020-05-19 12:21 | PM.PN ---
Subjective Subjective: Interval history: This morning patient was examined, he has no particular complaints, doing well, awaiting PICC line placement Vitals/I&O/Wt Last Vital Signs Temp 98.2 F 05/19/20 08:00 Pulse 82 05/19/20 08:00 Resp 18 05/19/20 08:09 BP 113/71 05/19/20 08:00 Pulse Ox 95 05/19/20 08:00 05/18/20 05/19/20 05/19/20 22:59 06:59 14:59 Intake Total 200 / 640 540 / 540 Output Total 100 / 100 220 / 220 Balance 200 / 640 -100 / 540 320 / 320 Physical Exam Const: COMMON NORMALS: no acute distress and patient oriented x3 HENMT: COMMON NORMALS: normocephalic HEAD & SCALP: normocephalic Neck/C-Spine: COMMON NORMALS: no JVD Resp: COMMON NORMALS: normal respiratory effort, No retractions, No use of accessory muscles and clear to auscultation bilaterally AUSCULTATION: clear to auscultation bilaterally Cardio: COMMON NORMALS: no JVD, regular rate, regular rhythm, S1 normal heart sound present and S2 normal heart sound present RATE: regular rate RHYTHM: regular rhythm HEART SOUNDS: S1 normal heart sound present and S2 normal heart sound present GI: COMMON NORMALS: Normal to inspection, nondistended, normoactive bowel sounds present, Soft to palpation, non-tender, No hepatosplenomegaly present, no masses and no bruits PALPATION: Yes Soft to palpation and Yes No hepatosplenomegaly present Extremity: COMMON NORMALS: capillary refill normal, no clubbing, cyanosis or edema, no calf tenderness and no pedal edema NARRATIVE EXTREMITY EXAM: Left knee in a binder Neuro: COMMON NORMALS: patient oriented x3 Psych: COMMON NORMALS: mental status grossly normal Urinary Catheter Management^: F: Cath Placed During This Visit: yes, but has since been removed by the nurse Reason for Continuing Indwelling Catheter: Perioperative Use in Selected Surgeries Urinary Catheter Date of Insertion: 05/14/20 Urinary Catheter Time of Insertion: 14:40 Date Urinary Catheter Removed: 05/15/20 Time Urinary Catheter Discontinued: 06:00 Data : 05/19/20 05:53 05/19/20 05:53 Micro: Microbiology 05/14/20 07:32 Blood Culture - Final Blood NO GROWTH AFTER 5 DAYS 05/14/20 07:38 Blood Culture - Final Blood NO GROWTH AFTER 5 DAYS 05/14/20 15:05 Gram Stain - Final Knee - Left Anaerobic Culture - Preliminary Wound Culture - Final Staphylococcus aureus A&P Assessment and plan (1) Prosthetic joint infection: Status: Acute Qualifiers: Encounter type: initial encounter Qualified Code(s): T84.50XA - Infection and inflammatory reaction due to unspecified internal joint prosthesis, initial encounter (2) History of total left knee replacement: Status: Acute (3) Wound dehiscence: Status: Deleted (4) Contusion of left knee: Status: Acute Qualifiers: Encounter type: initial encounter Qualified Code(s): S80.02XA - Contusion of left knee, initial encounter Additional A&P Information Antibiotic associated diarrhea, order C. difficile post op from left TKR 04/16 with mechanical fall last week , now with wound dehiscence and PJI X ray shows soft tissue effusion without hardware displacement Preusmed PJI given OR findings, elevated ESR >100, elavted synovial fluid count ~60K, path findings of acute synovitis OR cx pending, thus far with NGTD, gram stain negative superficial cx with staph aureus thus far, pending susceptibility to establish MSSA vs MRSA will plan for at least 6 weeks of iv abx for PJI, choice of abx dependent on final cx If OR cx shows staph aureus If MSSA, will plan for 6 weeks iv cefazolin , if MRSA plan for 6 weeks of iv vancomycin iv cefazolin empriically to continue until then Picc line after 48 hrs negative blood cx, apparently PICC line cannot be placed until Wednesday adjunctive rifampin likely to be added closer to discharge, assuming OR cx do not reveal a different organism Transaminitis this morning, will do a right upper quadrant ultrasound Dispo: patient prefers to return home with HH, declined SNF Full code Aspirin for DVT prophylaxis Attestations Medical Necessity Statement*: Patient requires hospitalization for prosthetic joint infection requiring IV antibiotic therapy Coding Level of Care Code Acute 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
--- NOTE | 2020-05-19 14:47 | PC.OT ---
OT goals met. See RODRIGUEZ note.
--- NOTE | 2020-05-19 17:23 | P.CONIM_ITS ---
Providers/Reason For Consult Consulting Physican/Specialty*: Angeli Ling MD Reason for Consult*: PJI left knee Attending Physician: Elliott Vega MD Primary Care Provider: Colby Mota MD History of Present Illness History of Present Illness Anil Jacobs is a 59 year old male with recent TKR on 04/16 for OA doingw ell post operatively until 1 week prior to current admission on May 13 when he suffered a mechanical fall and landed on his left knee which resulted in opening of the post surgical siddharth, he went to [facility] were siddharth were replaced and patient discharged home. Over the next 24 hrs, he started to notice discharge from the incision site described as bloody serous, occassionally white-yellow. Evaluted by Dr. Rome the next day and started on Clindamycin 300mg po TID however continued to have persistent discharge and then developed chills prompting return to the ER. On May 14 he underwent irrigation and debridement with polyethylene exchange and revision of the tibial tray with retention of hardware. Or findings included purulent fluid obtained from intra- articular aspiration and arthrotomy. However cultures from the joint fluid did end up growing MSSA. Patient has been on treatment with IV cefazolin 2 g IV every 8 hour since when I saw him previously. He is currently tolerating the cefazolin well without any adverse effects. Review of Systems General: Reports: 10 or more systems reviewed and unremarkable except in HPI and below Const: Denies: fever(s), chills or body aches Eyes: Denies: change in vision, blurry vision or photophobia ENMT: Reports: hoarseness; Denies: throat pain, enlarged tonsils, odynophagia or nasal congestion Card: Denies: chest pain, palpitations, irregular heart rhythm, edema, swelling of feet/ankles, lightheadedness, pre-syncope, dyspnea on exertion or orthopnea Resp: Denies: dyspnea, productive cough, non-productive cough, wheezing, stridor, pain on inspiration, change in phlegm color, hemoptysis or chest congestion GI: Denies: abdominal pain, nausea, vomiting, hematemesis, coffee ground emesis, dysphagia, heartburn, diarrhea, constipation, GI cramping, change in stool character, hematochezia or melena : Denies: flank pain, dysuria, urinary frequency, urinary urgency, urinary hesitancy or hematuria Musc: Denies: neck pain, back pain, extremity pain, joint swelling, joint warmth or deformity Neuro: Denies: headache(s), numbness in extremities, weakness in extremities, sensory changes, difficulty walking, frequent falls, dizziness, vertigo, behavioral changes, Slurred speech present or seizure-like activity Psych: Denies: anxiety, depression, suicidal ideation or homicidal ideation Endo: Denies: polyuria, polydipsia, tired all the time, cold intolerance or hot flashes Armando/Lymph: Denies: easy bruising or easy bleeding Meds/Allergies Home Medications and Allergies Home Medications Medication Instructions Recorded Confirmed Last Taken Type tamsulosin 0.4 mg capsule 0.4 mg PO DAILY #90 cap 12/07/19 05/14/20 04/15/20 Rx omeprazole 20 mg capsule,delayed 20 mg PO BID #60 cap 01/30/20 05/14/20 04/15/20 Rx release carbamazepine 200 mg 200 mg PO TID #90 tab 03/21/20 05/14/20 04/15/20 Rx tablet,extended release,12 hr celecoxib 200 mg PO Q12H #60 cap 04/17/20 05/14/20 Unknown Rx citalopram 40 mg tablet 40 mg PO DAILY #30 tab 05/09/20 05/14/20 Unknown Rx Tylenol Extra Strength 1,000 mg PO PRN 05/14/20 05/14/20 Unknown History mirtazapine 15 mg PO DAILY@20 05/14/20 05/14/20 Unknown History sildenafil [Viagra] 100 mg PO DAILY PRN 05/14/20 05/14/20 Unknown History aspirin 325 mg PO DAILY 30 Days #30 tab 05/21/20 05/14/20 05/10/20 Rx cefazolin 2 g IV Q8H 42 Days #25 ea 05/21/20 Unknown Rx hydrocodone-acetaminophen 1 tab PO Q8H PRN 7 Days #21 tab 05/21/20 05/14/20 Unknown Rx rifampin 300 mg PO Q12H 42 Days #84 cap 05/21/20 Unknown Rx Allergies Allergy/AdvReac Type Severity Reaction Status Date / Time tramadol Allergy ADR-Seizure Verified 05/14/20 08:35 Current Medications Current Medications Generic Name Dose Route Start Last Admin Trade Name Freq PRN Reason Stop Dose Admin Aspirin 325 mg 05/15/20 09:00 05/19/20 08:09 Aspirin 325 Mg Ec Tablet PO 325 mg DAILY WILLIE Administration Calcium Carbonate 1,000 mg 05/14/20 18:26 05/19/20 08:08 Calcium Carbonate 500 Mg Chew Tablet PO 1,000 mg BID WILLIE Administration Carbamazepine 200 mg 05/13/20 21:00 05/19/20 15:21 Carbamazepine Xr (12 Hr) 200 Mg Tablet PO 200 mg TID WILLIE Administration Celecoxib 200 mg 05/13/20 20:19 05/18/20 21:08 Celecoxib 200 Mg Capsule PO 200 mg Q12H PRN Administration pain Chlorhexidine Gluconate 30 ml 05/14/20 21:00 05/19/20 15:14 Chlorhexidine Gluconate 0.12% Btl 473 Ml MUCOUS MEM Not Given QID WILLIE Citalopram Hydrobromide 40 mg 05/14/20 09:00 05/19/20 08:09 Citalopram 20 Mg Tablet PO 40 mg DAILY WILLIE Administration Cefazolin Sodium 2,000 mg/ 60 mls @ 120 mls/hr 05/15/20 21:00 05/19/20 15:14 Sodium Chloride IV 120 mls/hr Q8H WILLIE Administration Multivitamins Therapeutic 1 tab 05/15/20 09:00 05/19/20 08:09 Multivitamin Therapeutic Tablet PO 1 tab DAILY [facility] Administration Mupirocin 1 applic 05/14/20 18:26 05/19/20 08:10 Mupirocin Oint 22 Gm NASAL 05/19/20 18:25 Not Given BID [facility] Protocol Oxycodone HCl 5 mg 05/18/20 22:13 05/19/20 15:14 Oxycodone 5 Mg Ir Tab/Cap PO 5 mg Q4H PRN Administration MODERATE PAIN Pantoprazole Sodium 40 mg 05/14/20 09:00 05/19/20 08:[address] 40 Mg Tablet PO 40 mg DAILY WILLIE Administration Polysaccharide Iron Complex 150 mg 05/14/20 18:26 05/19/20 08:09 Iron Polysaccharide Complex 150 Mg Capsule PO 150 mg BIDWM [facility] Administration Senna/Docusate Sodium 2 tab 05/14/20 18:26 05/19/20 09:49 Sennosides-Docusate Tablet PO Not Given BID [facility] Tamsulosin HCl 0.4 mg 05/14/20 09:00 05/19/20 08:08 Tamsulosin 0.4 Mg Capsule PO 0.4 mg DAILY WILLIE Administration Vitamin D 1,000 unit 05/15/20 09:00 05/19/20 08:09 Cholecalciferol (Vitamin D3) 1,000 Unit Tablet PO 1,000 unit DAILY WILLIE Administration PFSH Acute PFSH: Medical History Alcohol dependence, in remission Anxiety reaction Bipolar disorder, in partial remission, most recent episode manic Cervical disc disorder with myelopathy of mid-cervical region Chronic headaches CVA (cerebral vascular accident) Depression Erectile dysfunction Gastritis Generalized anxiety disorder Hypertension Mild intellectual disabilities Pancreatitis Seizure Superficial thrombophlebitis Surgical History H/O angioplasty H/O: knee surgery History of cardiac catheterization History of carpal tunnel surgery History of cholecystectomy Status post spinal arthrodesis 12/08/2018 Dr. Mehran [place]ail C5-C6 ACDFF Family History Father Cancer Heart disease Mother Cancer Heart disease Family/Other Diabetes Brother Diabetes Social History Smoking and tobacco status: current some day smoker Alcohol intake: never Household members: significant other Marital status: Current occupational status: disabled History of recent travel: Yes Current gender identity: Male Vitals/I&O/Wt Last Vital Signs Temp 98.6 F 05/19/20 16:00 Pulse 73 05/19/20 16:00 Resp 18 05/19/20 16:00 BP 121/78 05/19/20 16:00 Pulse Ox 97 05/19/20 16:00 05/19/20 05/19/20 05/19/20 06:59 14:59 22:59 Intake Total 660 / 660 Output Total 100 / 100 220 / 220 Balance -100 / 540 440 / 440 Physical Exam 2 Narrative: EXAM NARRATIVE: GEN: Awake, alert and oriented, no acute distress CVS: S1S2 N RS: CTA B/L Abd: Soft, nt/nd , bs+ B2B APPOINTMENT SETTER: no focal neuro deficits Extremities: No signs of cellulitis around the left knee. Incision appears to be healing well at this present time. Popliteal fossa was grossly edematous initially on day of admission, now much improved. Urinary Catheter Management^: F: Cath Placed During This Visit: yes, but has since been removed by the nurse Reason for Continuing Indwelling Catheter: Perioperative Use in Selected Surgeries Urinary Catheter Date of Insertion: 05/14/20 Urinary Catheter Time of Insertion: 14:40 Date Urinary Catheter Removed: 05/15/20 Time Urinary Catheter Discontinued: 06:00 Data Micro: Micro: Microbiology 05/14/20 15:05 Gram Stain - Final Knee - Left Anaerobic Culture - Preliminary Wound Culture - Fi nal Staphylococcus aureus 05/14/20 07:32 Blood Culture - Fi nal Blood NO GROWTH AFTER 5 DAYS 05/14/20 07:38 Blood Culture - Fi nal Blood NO GROWTH AFTER 5 DAYS A&P Assessment and plan (1) Prosthetic joint infection: Status: Acute Qualifiers: Encounter type: initial encounter Qualified Code(s): T84.50XA - Infection and inflammatory reaction due to unspecified internal joint prosthesis, initial encounter (2) Traumatic wound dehiscence: Status: Acute Qualifiers: Encounter type: initial encounter Qualified Code(s): T81.33XA - Disruption of traumatic injury wound repair, initial encounter (3) History of total left knee replacement: Status: Acute (4) Osteoarthritis of left knee: Status: Acute Qualifiers: Osteoarthritis type: primary Qualified Code(s): M17.12 - Unilateral primary osteoarthritis, left knee Additional A&P Information Overall impression is that of prosthetic joint infection with retained hardware of the left knee after TKR on 1123 complicated by mechanical fall and wound dehiscence. X-ray initially showed soft tissue effusion without hardware displacement. Over findings with excessive purulent fluid within the synovium, cultures from which have revealed MSSA. ESR elevated greater than 100, synovial fluid count around 60,000, patchy findings of acute synovitis. Currently we will plan to treat patient with at least 6 weeks of IV antibiotics for prosthetic joint infection, choice of antibiotic will be cefazolin 2 g IV every 8 hours as organism directed therapy for MSSA. Patient's liver functions were noted to be deranged with elevation in AST ALT, however less than 5 times of the upper limits therefore plan to continue with cefazolin for now with close monitoring of weekly LFTs. Obtain right upper quadrant ultrasound to evaluate for any developing hepatitis versus biliary obstruction/dilatation. PICC line waiting to be placed. Blood cultures remain negative to date. Based on LFT trend tomorrow we will plan to add adjunctive rifampin in view of retained hardware. And is planning to return home with home health, home IV antibiotic infusion is being arranged. Coding Level of Care Code Acute Provider Relations Coordinator for [facility] Fwd Diagnoses Prosthetic joint infection T84.50XA Encounter type: initial encounter Traumatic wound dehiscence T81.33XA Encounter type: initial encounter History of total left knee replacement Z96.652 Osteoarthritis of left knee M17.12 Osteoarthritis type: primary
[2020-05-19] MEDS: sennosides-docusate Tablet 2 TAB PO (17:44)
[2020-05-19] MEDS: efferdent effervescent 1 EACH DENTAL (17:50)
[2020-05-20] VITALS (9 sets, daily range): BP systolic 101–120; BP diastolic 63–85; PULSE 72–91; RESP 16–18; TEMP 36.4–37.4; O2SAT 95–98
[2020-05-20] MEDS: oxyCODONE 5 mg IR Tab/Cap PO ×4 (05:45→21:02)
--- NOTE | 2020-05-20 08:36 | XR_ITS ---
WS: [id number] Exam: XR chest 1V portable [id number] Date/Time of Exam: 05/20/2020 8:36 AM Reason For Exam: PICC PLACEMENT Comparison 10/17/2017. The lungs are clear and fully inflated. Normal cardiomediastinal structures and bony elements. A righ t PICC line is been placed and appears to end in the lower one third of the SVC in good position. XR/XR chest 1V portable [id number] IMPRESSION: 1. Right-sided PICC line in satisfactory position ending in the lower one third of the SVC. 2. The chest is otherwise unremarkable.
[2020-05-20] MEDS: citalopram 20 mg Tablet 40 MG PO (10:43)
[2020-05-20] MEDS: multivitamin therapeutic Tablet 1 TAB PO (10:43)
[2020-05-20] MEDS: pantoprazole DR 40 mg Tablet PO (10:43)
[2020-05-20] MEDS: iron polysaccharide complex 150 mg Capsule PO ×2 (10:43→18:17)
[2020-05-20] MEDS: cholecalciferol (vitamin D3) 1,000 unit Tablet 1000 UNIT PO (10:43)
[2020-05-20] MEDS: aspirin 325 mg EC Tablet PO (10:43)
[2020-05-20] MEDS: tamsulosin 0.4 mg Capsule PO (10:43)
[2020-05-20] MEDS: calcium carbonate 500 mg Chew Tablet 1000 MG PO ×2 (10:43→18:17)
--- NOTE | 2020-05-20 11:32 | P.PN_ITS ---
Subjective Subjective: Interval history: Patient was examined this morning, he is doing well, had his PICC line placed, waiting on antibiotic approval for insurance company, overall doing well Vitals/I&O/Wt Last Vital Signs Temp 98.1 F 05/20/20 04:00 Pulse 72 05/20/20 04:00 Resp 18 05/20/20 10:43 BP 101/63 05/20/20 04:00 Pulse Ox 98 05/20/20 05:45 05/19/20 05/20/20 05/20/20 22:59 06:59 14:59 Intake Total 870 / 1530 120 / 1650 Output Total 200 / 420 Balance 670 / 1110 120 / 1230 Physical Exam Const: COMMON NORMALS: no acute distress and patient oriented x3 HENMT: COMMON NORMALS: normocephalic HEAD & SCALP: normocephalic Neck/C-Spine: COMMON NORMALS: no JVD Resp: COMMON NORMALS: normal respiratory effort, No retractions, No use of accessory muscles and clear to auscultation bilaterally AUSCULTATION: clear to auscultation bilaterally Cardio: COMMON NORMALS: no JVD, regular rate, regular rhythm, S1 normal heart sound present and S2 normal heart sound present RATE: regular rate RHYTHM: regular rhythm HEART SOUNDS: S1 normal heart sound present and S2 normal heart sound present GI: COMMON NORMALS: Normal to inspection, nondistended, normoactive bowel sounds present, Soft to palpation, non-tender, No hepatosplenomegaly present, no masses and no bruits PALPATION: Yes Soft to palpation and Yes No hepatosplenomegaly present Extremity: COMMON NORMALS: capillary refill normal, no clubbing, cyanosis or edema, no calf tenderness and no pedal edema Neuro: COMMON NORMALS: patient oriented x3 Psych: COMMON NORMALS: mental status grossly normal Skin: NARRATIVE SKIN EXAM: Left knee looks clean and dry Urinary Catheter Management^: F: Cath Placed During This Visit: yes, but has since been removed by the nurse Reason for Continuing Indwelling Catheter: Perioperative Use in Selected Surgeries Urinary Catheter Date of Insertion: 05/14/20 Urinary Catheter Time of Insertion: 14:40 Date Urinary Catheter Removed: 05/15/20 Time Urinary Catheter Discontinued: 06:00 Data : 05/19/20 05:53 05/19/20 05:53 Micro: Microbiology 05/14/20 15:05 Gram Stain - Final Knee - Left Anaerobic Culture - Preliminary Wound Culture - Final Staphylococcus aureus 05/14/20 07:32 Blood Culture - Final Blood NO GROWTH AFTER 5 DAYS 05/14/20 07:38 Blood Culture - Final Blood NO GROWTH AFTER 5 DAYS A&P Assessment and plan (1) Prosthetic joint infection: Status: Acute Qualifiers: Encounter type: initial encounter Qualified Code(s): T84.50XA - Infection and inflammatory reaction due to unspecified internal joint prosthesis, initial encounter (2) History of total left knee replacement: Status: Acute (3) Wound dehiscence: Status: Deleted (4) Contusion of left knee: Status: Acute Qualifiers: Encounter type: initial encounter Qualified Code(s): S80.02XA - Contusion of left knee, initial encounter Additional A&P Information Antibiotic associated diarrhea, order C. difficile post op from left TKR 04/16 with mechanical fall last week , now with wound dehiscence and PJI X ray shows soft tissue effusion without hardware displacement Preusmed PJI given OR findings, elevated ESR >100, elavted synovial fluid count ~60K, path findings of acute synovitis OR cx staph aureus, gram stain negative superficial cx with staph aureus thus far, MSSA will plan for at least 6 weeks of iv abx for PJI, cefazolin and rifampin If MSSA, will plan for 6 weeks iv cefazolin iv cefazolin empriically currently Picc line placed adjunctive rifampin likely to be added closer to discharge, assuming OR cx do not reveal a different organism Transaminitis this morning, right upper quadrant ultrasound shows fatty liver disease, morning blood work pending Awaiting antibiotic approval Dispo: patient prefers to return home with , declined SNF Full code Aspirin for DVT prophylaxis Attestations Medical Necessity Statement*: Patient requires hospitalization for prosthetic joint infection, awaiting antibiotic approval Coding Level of Care Code Acute Business Development Analyst for Yomaira Fwd Diagnoses Prosthetic joint infection T84.50XA Encounter type: initial encounter History of total left knee replacement Z96.652 Wound dehiscence T81.30XA Contusion of left knee S80.02XA Encounter type: initial encounter
[2020-05-20] MEDS: carBAMazepine XR (12 HR) 200 mg Tablet PO ×3 (11:37→21:59)
[2020-05-20 12:44] LABS: Basophils % 0.4 %; Eosinophils # 0.2 10^3/uL (0.0-0.8); Eosinophils % 2.3 %; Hematocrit 39.2 % (42.0-52.0); Hemoglobin 11.9 g/dL (11.7-16.6); Lymphocytes # 1.6 10^3/uL (0.8-4.8); Lymphocytes % 20.3 %; Mean Corpuscular HGB Conc 30.4 g/dL (30.0-36.0); Mean Corpuscular Hemoglobin 29.9 pg (28.0-34.0); Mean Corpuscular Volume 98.5 fL (80-94); Mean Platelet Volume 10.3 fL (7.4-10.4); Monocytes # 0.9 10^3/uL (0.2-0.9); Monocytes % 11.5 %; Neutrophils % 65.2 %; Nucleated Red Blood Cells % 0 %; Platelet Count 428 10^3/cmm (130-400); Red Blood Count 3.98 10^6/uL (4.1-5.3); Red Cell Distribution Width 13.2 % (12.1-15.1)
[2020-05-20 13:02] LABS: Alanine Aminotransferase 64 U/L (0-41); Albumin Level 3.5 g/dL (3.5-5.2); Alkaline Phosphatase 165 IU/L (40-130); Blood Urea Nitrogen 11 mg/dL (6-20); Calcium 9.1 mg/dL (8.5-10.5); Carbon Dioxide 25 mmol/L (22-29); Chloride 104 mmol/L (98-107); Globulin 3.5 g/dL (1.3-4.6); Glomerular Filtration Rate 138.4 mL/min (90-130); Glucose 114 mg/dL (65-115); Magnesium 2.2 mg/dL (1.7-2.3); Osmolality Calculated 290 mOsm/kg (285-295); Phosphorus 2.6 mg/dL (2.5-4.5); Sodium 140 mmol/L (136-145); Total Bilirubin 0.2 mg/dL (0.15-1.2)
[2020-05-20 13:12] LABS: Anion Gap 15.2 (5-19); Potassium 4.2 mmol/L (3.5-5.1)
[2020-05-20 13:13] LABS: Aspartate Amino Transferase 47 U/L (0-40)
[2020-05-20] MEDS: rifAMPin 300 mg Capsule PO (15:23)
--- NOTE | 2020-05-20 17:30 | PM.PN ---
Subjective Subjective: Interval history: Infectious disease progress note PICC line was placed today. Patient tolerated procedure well. Participating with PT at this present time. Medications: Reviewed: Yes Vitals/I&O/Wt Last Vital Signs Temp 99.3 F 05/20/20 19:33 Pulse 76 05/20/20 19:33 Resp 16 05/20/20 21:02 BP 111/71 05/20/20 19:33 Pulse Ox 96 05/20/20 19:33 05/20/20 05/20/20 05/21/20 14:59 22:59 06:59 Intake Total 240 / 240 1310 / 1550 Balance 240 / 240 1310 / 1550 Physical Exam Narrative: EXAM NARRATIVE: GEN: Awake, alert and oriented, no acute distress CVS: S1S2 N RS: CTA B/L Abd: Soft, nt/nd , bs+ SENIOR TECHNICAL SUPPORT ANALYST: no focal neuro deficits Urinary Catheter Management^: F: Cath Placed During This Visit: yes, but has since been removed by the nurse Reason for Continuing Indwelling Catheter: Perioperative Use in Selected Surgeries Urinary Catheter Date of Insertion: 05/14/20 Urinary Catheter Time of Insertion: 14:40 Date Urinary Catheter Removed: 05/15/20 Time Urinary Catheter Discontinued: 06:00 Data : 05/21/20 06:27 05/21/20 06:27 Micro: Microbiology 05/14/20 15:05 Gram Stain - Final Knee - Left Anaerobic Culture - Preliminary Wound Culture - Final Staphylococcus aureus A&P Assessment and plan (1) Prosthetic joint infection: Status: Acute Qualifiers: Encounter type: initial encounter Qualified Code(s): T84.50XA - Infection and inflammatory reaction due to unspecified internal joint prosthesis, initial encounter (2) Traumatic wound dehiscence: Status: Acute Qualifiers: Encounter type: initial encounter Qualified Code(s): T81.33XA - Disruption of traumatic injury wound repair, initial encounter (3) History of total left knee replacement: Status: Acute (4) Osteoarthritis of left knee: Status: Acute Qualifiers: Osteoarthritis type: primary Qualified Code(s): M17.12 - Unilateral primary osteoarthritis, left knee Additional A&P Information Overall impression is that of prosthetic joint infection with retained hardware of the left knee after TKR on 04/16 complicated by mechanical fall and wound dehiscence. X-ray initially showed soft tissue effusion without hardware displacement. OR findings with excessive purulent fluid within the synovium, cultures from which have revealed MSSA. ESR elevated greater than 100, synovial fluid count around 60,000, patchy findings of acute synovitis. Currently we will plan to treat patient with at least 6 weeks of IV antibiotics for prosthetic joint infection, choice of antibiotic will be cefazolin 2 g IV every 8 hours as organism directed therapy for MSSA. Add rifampin 300 mg p.o. twice daily Patient's liver functions were noted to be deranged with elevation in AST ALT, however less than 5 times of the upper limits therefore plan to continue with cefazolin for now with close monitoring of weekly LFTs. Right upper quadrant ultrasound performed, shows fatty liver. Patient does report a history of alcohol consumption up until 2 years ago and quit drinking because of deranged LFTs per his reported history. Incidental note made of pelvic right kidney. Blood cultures remain negative to date. PICC line placed today, plan for discharge in the upcoming 24 hours And is planning to return home with home health, home IV antibiotic infusion has been arranged Attestations Medical Necessity Statement*: Please see hospitalist note Coding Level of Care Code Acute Grain Merchandiser for Yomaira Robins Diagnoses Prosthetic joint infection T84.50XA Encounter type: initial encounter Traumatic wound dehiscence T81.33XA Encounter type: initial encounter History of total left knee replacement Z96.652 Osteoarthritis of left knee M17.12 Osteoarthritis type: primary
[2020-05-21] VITALS (8 sets, daily range): BP systolic 106–142; BP diastolic 68–79; PULSE 71–88; RESP 16–20; TEMP 36.5–37.1; O2SAT 97–98
[2020-05-21] MEDS: oxyCODONE 5 mg IR Tab/Cap PO ×3 (01:22→10:25)
[2020-05-21 07:03] LABS: Basophils % 0.4 %; Eosinophils # 0.2 10^3/uL (0.0-0.8); Eosinophils % 3.2 %; Hematocrit 35.4 % (42.0-52.0); Hemoglobin 11.4 g/dL (11.7-16.6); Lymphocytes # 1.3 10^3/uL (0.8-4.8); Lymphocytes % 18.8 %; Mean Corpuscular HGB Conc 32.2 g/dL (30.0-36.0); Mean Corpuscular Hemoglobin 30.4 pg (28.0-34.0); Mean Corpuscular Volume 94.4 fL (80-94); Monocytes # 0.9 10^3/uL (0.2-0.9); Monocytes % 12.2 %; Neutrophils # 4.62 10^3/uL (1.8-7.7); Neutrophils % 65.1 %; Nucleated Red Blood Cells % 0 %; Platelet Count 499 10^3/cmm (130-400); Red Blood Count 3.75 10^6/uL (4.1-5.3); Red Cell Distribution Width 13.2 % (12.1-15.1); White Blood Count 7.1 10^3/uL (4.0-10.0)
[2020-05-21 07:28] LABS: Alanine Aminotransferase 51 U/L (0-41); Albumin Level 3.2 g/dL (3.5-5.2); Alkaline Phosphatase 155 IU/L (40-130); Blood Urea Nitrogen 11 mg/dL (6-20); Calcium 8.8 mg/dL (8.5-10.5); Carbon Dioxide 27 mmol/L (22-29); Chloride 104 mmol/L (98-107); Globulin 3.7 g/dL (1.3-4.6); Glomerular Filtration Rate 138.4 mL/min (90-130); Glucose 98 mg/dL (65-115); Osmolality Calculated 289 mOsm/kg (285-295); Sodium 140 mmol/L (136-145); Total Bilirubin 0.2 mg/dL (0.15-1.2); Total Protein 6.9 g/dL (6.6-8.7)
[2020-05-21 07:29] LABS: Magnesium 2.2 mg/dL (1.7-2.3); Phosphorus 3.2 mg/dL (2.5-4.5)
[2020-05-21 07:35] LABS: Anion Gap 13.3 (5-19); Aspartate Amino Transferase 36 U/L (0-40); Potassium 4.3 mmol/L (3.5-5.1)
[2020-05-21] MEDS: tamsulosin 0.4 mg Capsule PO (09:05)
[2020-05-21] MEDS: calcium carbonate 500 mg Chew Tablet 1000 MG PO (09:05)
[2020-05-21] MEDS: carBAMazepine XR (12 HR) 200 mg Tablet PO (09:06)
[2020-05-21] MEDS: citalopram 20 mg Tablet 40 MG PO (09:06)
[2020-05-21] MEDS: cholecalciferol (vitamin D3) 1,000 unit Tablet 1000 UNIT PO (09:06)
[2020-05-21] MEDS: rifAMPin 300 mg Capsule PO (09:06)
[2020-05-21] MEDS: iron polysaccharide complex 150 mg Capsule PO (09:06)
[2020-05-21] MEDS: pantoprazole DR 40 mg Tablet PO (09:06)
[2020-05-21] MEDS: multivitamin therapeutic Tablet 1 TAB PO (09:06)
[2020-05-21] MEDS: aspirin 325 mg EC Tablet PO (09:06)
--- NOTE | 2020-05-21 10:00 | P.PN_ITS ---
Subjective Subjective: Interval history: Infectious disease progress note. Patient plan for discharge today. States feeling well, range of motion is improving over the left knee. Tolerated addition of rifampin without any acute issues. Transaminitis is improving today. Medications: Reviewed: Yes Vitals/I&O/Wt Last Vital Signs Temp 98.5 F 05/21/20 13:48 Pulse 81 05/21/20 13:48 Resp 18 05/21/20 13:48 BP 122/79 05/21/20 13:48 Pulse Ox 98 05/21/20 13:48 05/21/20 05/21/20 05/21/20 06:59 14:59 22:59 Intake Total 60 / 1610 60 / 60 Balance 60 / 1610 60 / 60 Physical Exam Narrative: EXAM NARRATIVE: GEN: Awake, alert and oriented, no acute distress CVS: S1S2 N RS: CTA B/L Abd: Soft, nt/nd , bs+ AUTOMOTIVE GLASS SPECIALIST: no focal neuro deficits Urinary Catheter Management^: F: Cath Placed During This Visit: yes, but has since been removed by the nurse Reason for Continuing Indwelling Catheter: Perioperative Use in Selected Surgeries Urinary Catheter Date of Insertion: 05/14/20 Urinary Catheter Time of Insertion: 14:40 Date Urinary Catheter Removed: 05/15/20 Time Urinary Catheter Discontinued: 06:00 Data : 05/21/20 06:27 05/21/20 06:27 Micro: Microbiology 05/14/20 15:05 Gram Stain - Final Knee - Left Anaerobic Culture - Preliminary Wound Culture - Final Staphylococcus aureus A&P Assessment and plan (1) Prosthetic joint infection: Status: Acute Qualifiers: Encounter type: initial encounter Qualified Code(s): T84.50XA - Infection and inflammatory reaction due to unspecified internal joint prosthesis, initial encounter (2) Traumatic wound dehiscence: Status: Acute Qualifiers: Encounter type: initial encounter Qualified Code(s): T81.33XA - Disruption of traumatic injury wound repair, initial encounter (3) History of total left knee replacement: Status: Acute (4) Osteoarthritis of left knee: Status: Acute Qualifiers: Osteoarthritis type: primary Qualified Code(s): M17.12 - Unilateral primary osteoarthritis, left knee Additional A&P Information Overall impression is that of prosthetic joint infection with retained hardware of the left knee after TKR on 04/16 complicated by mechanical fall and wound dehiscence. X-ray initially showed soft tissue effusion without hardware displacement. OR findings with excessive purulent fluid within the synovium, cultures from which have revealed MSSA. ESR elevated greater than 100, synovial fluid count around 60,000, patchy findings of acute synovitis. Currently we will plan to treat patient with at least 6 weeks of IV antibiotics for prosthetic joint infection, choice of antibiotic will be cefazolin 2 g IV every 8 hours as organism directed therapy for MSSA. Added rifampin 300 mg p.o. twice daily on 05/20. Patient's liver functions were noted to be deranged with elevation in AST ALT, however less than 5 times of the upper limits therefore plan to continue with cefazolin and rifampin for now with close monitoring of weekly LFTs. Right upper quadrant ultrasound performed, shows fatty liver. Patient does report a history of alcohol consumption up until 2 years ago and quit drinking because of deranged LFTs per his reported history. Incidental note made of pelvic right kidney. If continues to tolerate rifampin and LFTs remained stable, will aim to increase dose of rifampin to 450 mg p.o. twice daily. Patient counseled extensively that rifampin can cause yellowish discoloration of body secretions including urine sweating tears. After the initial. Of 6 weeks of rifampin plus cefazolin, will likely transition to chronic suppression with cefadroxil as hardware likely to be retained if patient recovers well from this current episode. Blood cultures remain negative to date. While on above antibiotic regimen, patient will need weekly labs including CBC CMP and ESR, which can be faxed over to the infectious disease clinic. I will arrange for follow-up in the ID clinic on June 11, 2020. And is planning to return home with home health, home IV antibiotic infusion has been arranged Attestations Medical Necessity Statement*: Septic joint infection needing IV antibiotics and debridement, plan for discharge today Coding Level of Care Code Acute Director Of Reservations for Yomaira Robins Diagnoses Prosthetic joint infection T84.50XA Encounter type: initial encounter Traumatic wound dehiscence T81.33XA Encounter type: initial encounter History of total left knee replacement Z96.652 Osteoarthritis of left knee M17.12 Osteoarthritis type: primary
--- NOTE | 2020-05-21 10:53 | PM.DCS ---
Discharge Providers Date of Admission: 05/13/20 20:01 Date of Discharge: May 21, 2020 Attending Provider at Admission: Angeli Ling MD Attending Provider at Discharge: Elliott Vega MD Primary Care Provider: Colby Mota MD Diagnoses at Discharge Discharge Diagnosis (1) Prosthetic joint infection: Status: Acute Qualifiers: Encounter type: initial encounter Qualified Code(s): T84.50XA - Infection and inflammatory reaction due to unspecified internal joint prosthesis, initial encounter (2) History of total left knee replacement: Status: Acute (3) Wound dehiscence: Status: Deleted (4) Contusion of left knee: Status: Acute Qualifiers: Encounter type: initial encounter Qualified Code(s): S80.02XA - Contusion of left knee, initial encounter Reason for Visit Reason for Visit: INFECTION IN L KNEE/SENT BY DR ROME Hospital Course Hospital Course This is a 59-year-old male with a past medical history of TKR on April 16 for osteoarthritis of the knee, suffered a mechanical fall, with opening of surgical siddharth, started to develop bloody discharge from his surgical incision site and joint swelling Patient was admitted for prosthetic joint infection and wound dehiscence, received broad-spectrum antibiotic therapy, status post irrigation and debridement and polyethylene exchange, revision of tibial tray, left total knee arthroplasty by Dr. Rome. Cultures came back positive for staph aureus MSSA. Patient antibiotic therapy was de-escalated to cefazolin and rifampin. Patient will be discharged on cefazolin for a total of 6 weeks, 2 g every 8 hours. Rifampin 300 mg twice daily for 6 weeks. Weekly CBCs and CMP's. Follow-up with Dr. Rome in early May. Follow-up with Dr. Ling infectious disease on June 11. Patient will be weightbearing as tolerated, flexion is limited to 90 degrees. Discharged to home, with home health care. Patient was advised to abstain from alcohol consumption given that he is on rifampin Physical Exam Const: COMMON NORMALS: no acute distress and patient oriented x3 HENMT: COMMON NORMALS: normocephalic HEAD & SCALP: normocephalic Neck/C-Spine: COMMON NORMALS: no JVD Resp: COMMON NORMALS: normal respiratory effort, No retractions, No use of accessory muscles and clear to auscultation bilaterally AUSCULTATION: clear to auscultation bilaterally Cardio: COMMON NORMALS: no JVD, regular rate, regular rhythm, S1 normal heart sound present and S2 normal heart sound present RATE: regular rate RHYTHM: regular rhythm HEART SOUNDS: S1 normal heart sound present and S2 normal heart sound present GI: COMMON NORMALS: Normal to inspection, nondistended, normoactive bowel sounds present, Soft to palpation, non-tender, No hepatosplenomegaly present, no masses and no bruits PALPATION: Yes Soft to palpation and Yes No hepatosplenomegaly present Extremity: COMMON NORMALS: capillary refill normal, no clubbing, cyanosis or edema, no calf tenderness and no pedal edema Neuro: COMMON NORMALS: patient oriented x3 Psych: COMMON NORMALS: mental status grossly normal Urinary Catheter Management^: F: Cath Placed During This Visit: yes, but has since been removed by the nurse Reason for Continuing Indwelling Catheter: Perioperative Use in Selected Surgeries Urinary Catheter Date of Insertion: 05/14/20 Urinary Catheter Time of Insertion: 14:40 Date Urinary Catheter Removed: 05/15/20 Time Urinary Catheter Discontinued: 06:00 Discharge Data Data Completed and Pending: Completed Studies During Hospitalization Category Date Time Status XR chest 1V jose francisco ble [id number] Routine Exams 05/20/20 08:36 Completed XR knee LT 3V* [id number] Urgent Exams 05/14/20 17:11 Completed US abdomen comple te* [id number] Routine Ultrasound 05/19/20 08:27 Completed Pending at discharge Category Date Time Status Anaerobic Culture Routine Lab 05/14/20 15:05 Results Magnesium AM LABS Lab 05/22/20 04:00 Ordered Magnesium AM LABS Lab 05/23/20 04:00 Ordered Phosphorus AM LAB S Lab 05/22/20 04:00 Ordered Phosphorus AM LAB S Lab 05/23/20 04:00 Ordered Wound Culture and Gram Stain Routin e Lab 05/14/20 15:05 Results Labs from last 24 hours 05/21/20 05/21/20 05/21/20 06:27 06:27 06:27 WBC 7.1 RBC 3.75 L Hgb 11.4 L Hct 35.4 L MCV 94.4 H MCH 30.4 MCHC 32.2 D RDW 13.2 Plt Count 499 H MPV 10.0 Neut % (Auto) 65.1 Lymph % (Auto) 18.8 Ro[place] % (Auto) 12.2 Eos % (Auto) 3.2 Baso % (Auto) 0.4 Neut # (Auto) 4.62 Lymph # (Auto) 1.3 [place] # (Auto) 0.9 Eos # (Auto) 0.2 Baso # (Auto) 0.0 Nucleated RBC % (a uto) 0 Nucleated RBCs # 0.0 Sodium 140 Potassium 4.3 Chloride 104 Carbon Dioxide 27 Anion Gap 13.3 BUN 11 Creatinine 0.6 L GFR Calculation 138.4 H Glucose 98 Calculated Osmolal ity 289 Calcium 8.8 Phosphorus 3.2 Magnesium 2.2 Total Bilirubin 0.2 AST 36 ALT 51 H Alkaline Phosphata se 155 H Total Protein 6.9 Albumin 3.2 L Globulin 3.7 Misc Test Referenc e 05/20/20 05/20/20 05/18/20 12:38 12:38 12:40 WBC 8.0 RBC 3.98 L Hgb 11.9 Hct 39.2 L MCV 98.5 H MCH 29.9 MCHC 30.4 RDW 13.2 Plt Count 428 H MPV 10.3 Neut % (Auto) 65.2 Lymph % (Auto) 20.3 [place] % (Auto) 11.5 Eos % (Auto) 2.3 Baso % (Auto) 0.4 Neut # (Auto) 5.20 Lymph # (Auto) 1.6 [place] # (Auto) 0.9 Eos # (Auto) 0.2 Baso # (Auto) 0.0 Nucleated RBC % (a uto) 0 Nucleated RBCs # 0.0 Sodium 140 Potassium 4.2 Chloride 104 Carbon Dioxide 25 Anion Gap 15.2 BUN 11 Creatinine 0.6 L GFR Calculation 138.4 H Glucose 114 Calculated Osmolal ity 290 Calcium 9.1 Phosphorus 2.6 Magnesium 2.2 Total Bilirubin 0.2 AST 47 H ALT 64 H Alkaline Phosphata se 165 H Total Protein 7.0 Albumin 3.5 Globulin 3.5 Misc Test Referenc e See comment Vitals: Last Vital Signs Temp 97.8 F 05/21/20 08:00 Pulse 88 05/21/20 08:00 Resp 18 05/21/20 10:25 BP 106/68 05/21/20 08:00 Pulse Ox 98 05/21/20 08:00 Discharge Plan Discharge Patient Disposition: Home Health Service Condition: Stable Prescriptions: New cefazolin 1 gram recon soln 2 g IV Q8H 42 Days Qty: 25 RF: 0 rifampin 300 mg capsule 300 mg PO Q12H 42 Days Qty: 84 RF: 0 Continued citalopram [Celexa] 40 mg tablet 40 mg PO DAILY Qty: 30 RF: 2 tamsulosin 0.4 mg capsule 0.4 mg PO DAILY Qty: 90 RF: 2 omeprazole 20 mg capsule,delayed release(DR/EC) 20 mg PO BID Qty: 60 RF: 6 carbamazepine [Tegretol XR] 200 mg tablet extended release 12 hr 200 mg PO TID Qty: 90 RF: 0 celecoxib 200 mg Capsule 200 mg PO Q12H Qty: 60 RF: 0 Tylenol Extra Strength 500 mg Tablet 1,000 mg PO PRN RF: 0 sildenafil [Viagra] 100 mg tablet 100 mg PO DAILY PRN (Reason: PRN) RF: 0 mirtazapine 15 mg tablet 15 mg PO DAILY@20 RF: 0 aspirin 325 mg Tablet,Delayed Release (Dr/Ec) 325 mg PO DAILY 30 Days Qty: 30 RF: 0 Changed hydrocodone-acetaminophen 7.5-325 mg tablet 1 tab PO Q8H PRN (Reason: pain) 7 Days Qty: 21 RF: 0 Discontinued potassium chloride 20 mEq tablet extended release 20 meq PO DAILY PRN (Reason: Pain) RF: 0 clindamycin HCl 300 mg capsule 300 mg PO TID 7 Days Qty: 21 RF: 0 Discharge Orders: Discharge Order (Routine); Ordered 05/21/20 Ordered By: Elliott Vega Other Ambulatory Orders: Complete Blood Count w/Auto (WEEKLY) Timeframe: 20200528 Location: Determined by Patient Ordered By: Elliott Vega Complete Blood Count w/Auto (WEEKLY) Timeframe: 20200529 Location: Determined by Patient Ordered By: Elliott Vega Complete Blood Count w/Auto (WEEKLY) Timeframe: 20200530 Location: Determined by Patient Ordered By: Elliott Vega Complete Blood Count w/Auto (WEEKLY) Timeframe: 20200531 Location: Determined by Patient Ordered By: Elliott Vega Complete Blood Count w/Auto (WEEKLY) Timeframe: 20200601 Location: Determined by Patient Ordered By: Elliott Vega Complete Blood Count w/Auto (WEEKLY) Timeframe: 20200602 Location: Determined by Patient Ordered By: Elliott Silvia Comprehensive Metabolic Panel (WEEKLY) Timeframe: 20200528 Facility: [facility] - Location: Lab - Main Lab Ordered By: Elliott Silvia Comprehensive Metabolic Panel (WEEKLY) Timeframe: 20200529 Facility: [facility] - Location: Lab - Main Lab Ordered By: Elliott Silvia Comprehensive Metabolic Panel (WEEKLY) Timeframe: 20200530 Facility: [facility] - Location: Lab - Main Lab Ordered By: Elliott Silvia Comprehensive Metabolic Panel (WEEKLY) Timeframe: 20200531 Facility: [facility] - Location: Lab - Main Lab Ordered By: Elliott Silvia Comprehensive Metabolic Panel (WEEKLY) Timeframe: 20200601 Facility: [facility] - Location: Lab - Main Lab Ordered By: Elliott Silvia Comprehensive Metabolic Panel (WEEKLY) Timeframe: 20200602 Facility: [facility] - Location: Lab - Main Lab Ordered By: Elliott Vega Referrals: Melyssa Rome MD [Physician] - 05/29/20 3:30 pm Angeli Ling MD [Hospitalist] - 06/11/20 (needs appointment jun 11 2020) Discharge Diet: Advance as tolerated and Usual diet Discharge Activity: Limit activity as instructed, Use walker/crutches as instructed and As per PT/OT instructions Activity Restrictions/Additional Instructions: Range of motion limited to 90 degrees of flexion. Gait training. Weightbearing as tolerated. -IV antibiotics cefazolin 2 g every 8 hours for 6 weeks -Rifampin p.o. 300 mg twice daily for 6 weeks -Follow-up with Dr. Damon on June 11 -Weekly CBC CMP -If you have fevers, worsening joint erythema go to the emergency room Discharge Attestations Time Spent in Discharge Care*: greater than 30 min Status at Discharge: Cognitive status at discharge: cognitively intact, Behavioral status at discharge: cooperative, Quality Metrics Clinical Quality Measures During this hospital stay, did patient experience: None Coding Level of Care Code Acute District Attorney for Yomaira Fwd Diagnoses Prosthetic joint infection T84.50XA Encounter type: initial encounter History of total left knee replacement Z96.652 Wound dehiscence T81.30XA Contusion of left knee S80.02XA Encounter type: initial encounter
== END 2020-05-21 13:54 | disposition home health service (06) | DRG 486 ==
LOC: ER 18:45 → MEDSURG 20:02
PROVIDERS: Emergency Medicine; Specialist; Admitting Provider Student in an Organized Health Care Education/Training Program; Emergency Provider Emergency Medicine; PCP Family Medicine; Visit Provider Family Medicine
PROC: 0S9D0ZZ Drainage of Left Knee Joint, Open Approach (ICD-10-PCS; principal; 2020-05-14 13:15)
DX: T84.54XA Infection and inflammatory reaction due to internal left knee prosthesis, initial encounter (principal); T81.32XA Disruption of internal operation (surgical) wound, not elsewhere classified, initial encounter; Y79.1 Therapeutic (nonsurgical) and rehabilitative orthopedic devices associated with adverse incidents; Z96.652 Presence of left artificial knee joint; W19.XXXA Unspecified fall, initial encounter; F10.21 Alcohol dependence, in remission; F31.73 Bipolar disorder, in partial remission, most recent episode manic; Z86.73 Personal history of transient ischemic attack (TIA), and cerebral infarction without residual deficits; N52.9 Male erectile dysfunction, unspecified; F41.1 Generalized anxiety disorder; I10 Essential (primary) hypertension; F70 Mild intellectual disabilities; I25.10 Atherosclerotic heart disease of native coronary artery without angina pectoris; Z98.61 Coronary angioplasty status; Z98.1 Arthrodesis status; F17.210 Nicotine dependence, cigarettes, uncomplicated; B95.61 Methicillin susceptible Staphylococcus aureus infection as the cause of diseases classified elsewhere
CPT/HCPCS: 12345; 36415; 36569; 36592; 51702; 71045; 73560; 73562; 73565; 76700; 80048; 80053; 80500; 83735; 84100; 85025; 85610; 85651; 86705; 86706; 86709; 86803; 87040; 87070; 87075; 87077; 87186; 87205; 87340; 87493; 87635; 89050; 97110; 97116; 97161; 97165; 97530; 97535; 99281; C1776; J0131; J0690; J1100; J1170; J2250; J2370; J2405; J2704; J2710; J3010; J3370; J3490; J7030; J7050

== ENCOUNTER 2020-05-28 15:51 | Outpatient (CLI) | payer OTHER, SELFPAY ==
[2020-04-10 14:28] VITALS: BP 120/81; BMI 31.6
[2020-05-28 17:10] LABS: Albumin Level 3.1 g/dL (3.5-5.2); Alkaline Phosphatase 139 IU/L (40-130); Blood Urea Nitrogen 5 mg/dL (6-20); Calcium 8.7 mg/dL (8.5-10.5); Carbon Dioxide 24 mmol/L (22-29); Globulin 3.5 g/dL (1.3-4.6); Glomerular Filtration Rate 138.4 mL/min (90-130); Glucose 121 mg/dL (65-115); Osmolality Calculated 283 mOsm/kg (285-295); Total Bilirubin 0.2 mg/dL (0.15-1.2); Total Protein 6.6 g/dL (6.6-8.7)
[2020-05-28 17:19] LABS: Basophils % 0.4 %; Eosinophils # 0.5 10^3/uL (0.0-0.8); Eosinophils % 8.1 %; Hematocrit 36.1 % (42.0-52.0); Hemoglobin 11.1 g/dL (11.7-16.6); Lymphocytes # 1.3 10^3/uL (0.8-4.8); Lymphocytes % 23.1 %; Mean Corpuscular HGB Conc 30.7 g/dL (30.0-36.0); Mean Corpuscular Hemoglobin 30.4 pg (28.0-34.0); Mean Corpuscular Volume 98.9 fL (80-94); Mean Platelet Volume 11.1 fL (7.4-10.4); Monocytes # 0.5 10^3/uL (0.2-0.9); Monocytes % 9.4 %; Neutrophils # 3.33 10^3/uL (1.8-7.7); Neutrophils % 58.8 %; Nucleated Red Blood Cells % 0 %; Platelet Count 335 10^3/cmm (130-400); Red Blood Count 3.65 10^6/uL (4.1-5.3); Red Cell Distribution Width 13.6 % (12.1-15.1); White Blood Count 5.7 10^3/uL (4.0-10.0)
[2020-05-28 18:09] LABS: Chloride 101 mmol/L (98-107); Sodium 137 mmol/L (136-145)
[2020-05-28 18:12] LABS: Anion Gap 16.2 (5-19); Aspartate Amino Transferase 22 U/L (0-40); Potassium 4.2 mmol/L (3.5-5.1)
[2020-05-28 18:13] LABS: Alanine Aminotransferase 13 U/L (0-41)
== END 2020-05-28 15:52 | disposition home or self-care (01) ==
PROVIDERS: Family Medicine; PCP Family Medicine; Visit Provider Specialist
DX: T84.50XA Infection and inflammatory reaction due to unspecified internal joint prosthesis, initial encounter (principal)
CPT/HCPCS: 80053; 85025

== ENCOUNTER → 2020-05-29 15:07 | Outpatient (BNVA) | payer MEDICARE, MEDICAID, SELFPAY ==
[2020-04-10 14:28] VITALS: BP 120/81; BMI 31.6
== END ==
PROVIDERS: PCP Family Medicine; Visit Provider Specialist
DX: G89.18 Other acute postprocedural pain (principal); T84.50XA Infection and inflammatory reaction due to unspecified internal joint prosthesis, initial encounter; Z96.652 Presence of left artificial knee joint; M17.12 Unilateral primary osteoarthritis, left knee
CPT/HCPCS: 73560; 73565

== ENCOUNTER 2020-06-03 15:29 | Outpatient (CLI) | payer MEDICARE, MEDICAID, SELFPAY ==
[2020-04-10 14:28] VITALS: BP 120/81; BMI 31.6
[2020-06-03 16:50] LABS: Basophils % 0.4 %; Eosinophils # 0.4 10^3/uL (0.0-0.8); Eosinophils % 6.9 %; Hematocrit 39.1 % (42.0-52.0); Hemoglobin 11.7 g/dL (11.7-16.6); Lymphocytes # 1.6 10^3/uL (0.8-4.8); Lymphocytes % 28.2 %; Mean Corpuscular HGB Conc 29.9 g/dL (30.0-36.0); Mean Corpuscular Hemoglobin 29.5 pg (28.0-34.0); Mean Corpuscular Volume 98.5 fL (80-94); Mean Platelet Volume 10.5 fL (7.4-10.4); Monocytes # 0.5 10^3/uL (0.2-0.9); Monocytes % 8.5 %; Neutrophils # 3.16 10^3/uL (1.8-7.7); Neutrophils % 55.6 %; Nucleated Red Blood Cells % 0 %; Platelet Count 260 10^3/cmm (130-400); Red Blood Count 3.97 10^6/uL (4.1-5.3); Red Cell Distribution Width 13.6 % (12.1-15.1); White Blood Count 5.7 10^3/uL (4.0-10.0)
[2020-06-03 17:55] LABS: Erythrocyte Sedimentation Rate 47 mm/hr (0-10)
== END 2020-06-03 15:30 | disposition home or self-care (01) ==
PROVIDERS: PCP Family Medicine; Visit Provider Student in an Organized Health Care Education/Training Program
DX: B99.9 Unspecified infectious disease (principal)
CPT/HCPCS: 85025; 85651

== ENCOUNTER → 2020-06-06 11:16 | Outpatient (BNVA) | payer MEDICARE, MEDICAID, SELFPAY ==
[2020-04-10 14:28] VITALS: BP 120/81; BMI 31.6
== END ==
PROVIDERS: PCP Family Medicine; Visit Provider Specialist
DX: G89.18 Other acute postprocedural pain (principal); T84.50XA Infection and inflammatory reaction due to unspecified internal joint prosthesis, initial encounter; Z96.652 Presence of left artificial knee joint; M17.12 Unilateral primary osteoarthritis, left knee
CPT/HCPCS: 73560; 73565

== ENCOUNTER 2020-06-10 16:23 | Outpatient (CLI) | payer MEDICARE, SELFPAY ==
[2020-04-10 14:28] VITALS: BP 120/81; BMI 31.6
[2020-06-10 16:36] LABS: Basophils % 0.4 %; Eosinophils # 0.7 10^3/uL (0.0-0.8); Hematocrit 38.7 % (42.0-52.0); Hemoglobin 12.2 g/dL (11.7-16.6); Lymphocytes # 1.4 10^3/uL (0.8-4.8); Lymphocytes % 20.4 %; Mean Corpuscular HGB Conc 31.5 g/dL (30.0-36.0); Mean Corpuscular Hemoglobin 30.1 pg (28.0-34.0); Mean Corpuscular Volume 95.6 fL (80-94); Mean Platelet Volume 10.6 fL (7.4-10.4); Monocytes # 0.6 10^3/uL (0.2-0.9); Monocytes % 8.8 %; Neutrophils # 4.07 10^3/uL (1.8-7.7); Neutrophils % 60.4 %; Nucleated Red Blood Cells % 0 %; Platelet Count 218 10^3/cmm (130-400); Red Blood Count 4.05 10^6/uL (4.1-5.3); Red Cell Distribution Width 13.5 % (12.1-15.1); White Blood Count 6.7 10^3/uL (4.0-10.0)
[2020-06-10 17:34] LABS: Albumin Level 3.3 g/dL (3.5-5.2); Alkaline Phosphatase 138 IU/L (40-130); Blood Urea Nitrogen 7 mg/dL (6-20); Calcium 9.3 mg/dL (8.5-10.5); Carbon Dioxide 26 mmol/L (22-29); Chloride 102 mmol/L (98-107); Globulin 3.4 g/dL (1.3-4.6); Glomerular Filtration Rate 138.4 mL/min (90-130); Glucose 136 mg/dL (65-115); Osmolality Calculated 288 mOsm/kg (285-295); Sodium 139 mmol/L (136-145); Total Bilirubin 0.2 mg/dL (0.15-1.2); Total Protein 6.7 g/dL (6.6-8.7)
[2020-06-10 17:35] LABS: Erythrocyte Sedimentation Rate 44 mm/hr (0-10)
[2020-06-10 17:40] LABS: Alanine Aminotransferase 11 U/L (0-41); Anion Gap 14.9 (5-19); Aspartate Amino Transferase 26 U/L (0-40); Potassium 3.9 mmol/L (3.5-5.1)
== END 2020-06-10 16:24 | disposition home or self-care (01) ==
PROVIDERS: PCP Family Medicine; Visit Provider Student in an Organized Health Care Education/Training Program
DX: M00.862 Arthritis due to other bacteria, left knee (principal)
CPT/HCPCS: 80053; 85025; 85651

== ENCOUNTER 2020-06-18 15:34 | Outpatient (CLI) | payer MEDICARE, MEDICAID, SELFPAY ==
[2020-04-10 14:28] VITALS: BP 120/81; BMI 31.6
[2020-06-18 17:30] LABS: Alanine Aminotransferase 7 U/L (0-41); Albumin Level 3.5 g/dL (3.5-5.2); Alkaline Phosphatase 118 IU/L (40-130); Blood Urea Nitrogen 6 mg/dL (6-20); Calcium 8.8 mg/dL (8.5-10.5); Carbon Dioxide 24 mmol/L (22-29); Chloride 104 mmol/L (98-107); Globulin 3.2 g/dL (1.3-4.6); Glomerular Filtration Rate 170.8 mL/min (90-130); Glucose 81 mg/dL (65-115); Osmolality Calculated 279 mOsm/kg (285-295); Sodium 136 mmol/L (136-145); Total Bilirubin 0.2 mg/dL (0.15-1.2); Total Protein 6.7 g/dL (6.6-8.7)
[2020-06-18 17:32] LABS: Anion Gap 12.2 (5-19); Aspartate Amino Transferase 19 U/L (0-40); Potassium 4.2 mmol/L (3.5-5.1)
[2020-06-18 18:02] LABS: Erythrocyte Sedimentation Rate 36 mm/hr (0-10)
[2020-06-18 19:02] LABS: Basophils % 0.3 %; Eosinophils # 0.5 10^3/uL (0.0-0.8); Eosinophils % 8.2 %; Hematocrit 38.3 % (42.0-52.0); Hemoglobin 12.2 g/dL (11.7-16.6); Lymphocytes # 1.7 10^3/uL (0.8-4.8); Lymphocytes % 26.3 %; Mean Corpuscular HGB Conc 31.9 g/dL (30.0-36.0); Mean Corpuscular Hemoglobin 29.9 pg (28.0-34.0); Mean Corpuscular Volume 93.9 fL (80-94); Mean Platelet Volume 11.1 fL (7.4-10.4); Monocytes # 0.8 10^3/uL (0.2-0.9); Monocytes % 13.2 %; Neutrophils # 3.29 10^3/uL (1.8-7.7); Neutrophils % 51.5 %; Nucleated Red Blood Cells % 0 %; Platelet Count 170 10^3/cmm (130-400); Red Blood Count 4.08 10^6/uL (4.1-5.3); Red Cell Distribution Width 13.3 % (12.1-15.1); White Blood Count 6.4 10^3/uL (4.0-10.0)
== END 2020-06-18 15:35 | disposition home or self-care (01) ==
LOC: LAB 15:35
PROVIDERS: PCP Family Medicine; Visit Provider Student in an Organized Health Care Education/Training Program
DX: T84.54XA Infection and inflammatory reaction due to internal left knee prosthesis, initial encounter (principal)
CPT/HCPCS: 80053; 85025; 85651

== ENCOUNTER 2020-06-24 16:16 | Outpatient (CLI) | payer MEDICARE, MEDICAID, SELFPAY ==
[2020-04-10 14:28] VITALS: BP 120/81; BMI 31.6
[2020-06-24 16:37] LABS: Basophils % 0.2 %; Eosinophils # 0.6 10^3/uL (0.0-0.8); Eosinophils % 10.9 %; Hematocrit 38.8 % (42.0-52.0); Hemoglobin 12.2 g/dL (11.7-16.6); Lymphocytes # 1.7 10^3/uL (0.8-4.8); Lymphocytes % 31.4 %; Mean Corpuscular HGB Conc 31.4 g/dL (30.0-36.0); Mean Corpuscular Volume 95.3 fL (80-94); Mean Platelet Volume 10.7 fL (7.4-10.4); Monocytes # 0.4 10^3/uL (0.2-0.9); Monocytes % 7.8 %; Neutrophils # 2.66 10^3/uL (1.8-7.7); Neutrophils % 49.3 %; Nucleated Red Blood Cells % 0 %; Platelet Count 246 10^3/cmm (130-400); Red Blood Count 4.07 10^6/uL (4.1-5.3); Red Cell Distribution Width 13.4 % (12.1-15.1); White Blood Count 5.4 10^3/uL (4.0-10.0)
[2020-06-24 17:03] LABS: Alanine Aminotransferase 6 U/L (0-41); Albumin Level 3.6 g/dL (3.5-5.2); Alkaline Phosphatase 109 IU/L (40-130); Blood Urea Nitrogen 5 mg/dL (6-20); Calcium 8.5 mg/dL (8.5-10.5); Carbon Dioxide 26 mmol/L (22-29); Chloride 104 mmol/L (98-107); Globulin 3.2 g/dL (1.3-4.6); Glomerular Filtration Rate 170.8 mL/min (90-130); Glucose 101 mg/dL (65-115); Osmolality Calculated 283 mOsm/kg (285-295); Sodium 138 mmol/L (136-145); Total Bilirubin 0.2 mg/dL (0.15-1.2); Total Protein 6.8 g/dL (6.6-8.7)
[2020-06-24 17:12] LABS: Anion Gap 11.7 (5-19); Aspartate Amino Transferase 20 U/L (0-40); Potassium 3.7 mmol/L (3.5-5.1)
[2020-06-24 17:26] LABS: Erythrocyte Sedimentation Rate 30 mm/hr (0-10)
== END 2020-06-24 16:17 | disposition home or self-care (01) ==
PROVIDERS: PCP Family Medicine; Visit Provider Student in an Organized Health Care Education/Training Program
DX: T84.54XA Infection and inflammatory reaction due to internal left knee prosthesis, initial encounter (principal)
CPT/HCPCS: 80053; 85025; 85651

== ENCOUNTER → 2020-07-17 11:54 | Outpatient (BNVA) | payer MEDICARE, MEDICAID, SELFPAY ==
[2020-04-10 14:28] VITALS: BP 120/81; BMI 31.6
== END ==
PROVIDERS: PCP Family Medicine; Visit Provider Specialist
DX: G89.18 Other acute postprocedural pain (principal); T84.50XA Infection and inflammatory reaction due to unspecified internal joint prosthesis, initial encounter; Z96.652 Presence of left artificial knee joint; M17.12 Unilateral primary osteoarthritis, left knee; Z98.890 Other specified postprocedural states
CPT/HCPCS: 73560; 73565

== ENCOUNTER → 2020-08-12 08:05 | Outpatient (BNVA) | payer MEDICARE, MEDICAID, SELFPAY ==
[2020-04-10 14:28] VITALS: BP 120/81; BMI 31.6
== END ==
PROVIDERS: PCP Family Medicine; Visit Provider Nurse Practitioner
DX: F31.73 Bipolar disorder, in partial remission, most recent episode manic (principal); F41.1 Generalized anxiety disorder
CPT/HCPCS: 99214

== ENCOUNTER → 2020-11-05 07:51 | Outpatient (BNVA) | payer MEDICARE, MEDICAID, SELFPAY ==
[2020-04-10 14:28] VITALS: BP 120/81; BMI 31.6
== END ==
PROVIDERS: PCP Family Medicine; Visit Provider Nurse Practitioner
DX: F31.73 Bipolar disorder, in partial remission, most recent episode manic (principal); F41.1 Generalized anxiety disorder
CPT/HCPCS: 99214

== ENCOUNTER → 2020-11-13 11:46 | Outpatient (BNVA) | payer MEDICARE, MEDICAID, SELFPAY ==
[2020-04-10 14:28] VITALS: BP 120/81; BMI 31.6
== END ==
PROVIDERS: PCP Family Medicine; Visit Provider Specialist
DX: G89.18 Other acute postprocedural pain (principal); T84.50XA Infection and inflammatory reaction due to unspecified internal joint prosthesis, initial encounter; Z96.652 Presence of left artificial knee joint; Z98.890 Other specified postprocedural states; M17.12 Unilateral primary osteoarthritis, left knee
CPT/HCPCS: 73560; 73565

== ENCOUNTER → 2020-12-16 15:00 | Outpatient (BNVA) | payer MEDICARE, MEDICAID, SELFPAY ==
[2020-04-10 14:28] VITALS: BP 120/81; BMI 31.6
== END ==
PROVIDERS: PCP Family Medicine; Visit Provider Specialist
DX: G40.209 Localization-related (focal) (partial) symptomatic epilepsy and epileptic syndromes with complex partial seizures, not intractable, without status epilepticus (principal); F10.21 Alcohol dependence, in remission; F17.200 Nicotine dependence, unspecified, uncomplicated
CPT/HCPCS: 99214

== ENCOUNTER → 2021-01-29 07:43 | Outpatient (BNVA) | payer MEDICARE, MEDICAID, OTHER, SELFPAY ==
[2020-04-10 14:28] VITALS: BP 120/81; BMI 31.6
== END ==
PROVIDERS: PCP Family Medicine; Visit Provider Nurse Practitioner
DX: F31.73 Bipolar disorder, in partial remission, most recent episode manic (principal); F41.1 Generalized anxiety disorder; F10.21 Alcohol dependence, in remission; F70 Mild intellectual disabilities
CPT/HCPCS: 99214

== ENCOUNTER → 2021-02-06 13:28 | Outpatient (BNVA) | payer OTHER, SELFPAY ==
[2020-04-10 14:28] VITALS: BP 120/81; BMI 31.6
== END ==
PROVIDERS: PCP Family Medicine; Visit Provider Nurse Practitioner
DX: F31.4 Bipolar disorder, current episode depressed, severe, without psychotic features (principal)
CPT/HCPCS: 80061; 83036

== ENCOUNTER → 2021-06-02 15:49 | Outpatient (BNVA) | payer MEDICARE, MEDICAID, SELFPAY ==
[2021-02-07 10:41] VITALS: BP 108/71; BMI 29.5
== END ==
PROVIDERS: PCP Family Medicine; Visit Provider Family Medicine
DX: G40.209 Localization-related (focal) (partial) symptomatic epilepsy and epileptic syndromes with complex partial seizures, not intractable, without status epilepticus (principal); M54.9 Dorsalgia, unspecified; M17.12 Unilateral primary osteoarthritis, left knee; F10.21 Alcohol dependence, in remission; M54.59 Other low back pain; F17.210 Nicotine dependence, cigarettes, uncomplicated; Z68.29 Body mass index [BMI] 29.0-29.9, adult
CPT/HCPCS: 80053; 80156; 85025

== ENCOUNTER → 2021-07-07 14:49 | Outpatient (BNVA) | payer MEDICARE, MEDICAID, SELFPAY ==
[2021-02-07 10:41] VITALS: BP 108/71; BMI 29.5
== END ==
PROVIDERS: PCP Family Medicine; Visit Provider Specialist
DX: Z96.652 Presence of left artificial knee joint (principal)
CPT/HCPCS: 73560; 73565

== ENCOUNTER → 2021-07-09 13:42 | Outpatient (BNVA) | payer MEDICARE, MEDICAID, SELFPAY ==
[2021-02-07 10:41] VITALS: BP 108/71; BMI 29.5
== END ==
PROVIDERS: PCP Family Medicine; Visit Provider Nurse Practitioner
DX: F41.1 Generalized anxiety disorder (principal); F31.73 Bipolar disorder, in partial remission, most recent episode manic; F10.21 Alcohol dependence, in remission; F70 Mild intellectual disabilities
CPT/HCPCS: 99214

== ENCOUNTER → 2021-12-15 15:07 | Outpatient (BNVA) | payer MEDICARE, MEDICAID, SELFPAY ==
[2021-02-07 10:41] VITALS: BP 108/71; BMI 29.5
== END ==
PROVIDERS: PCP Family Medicine; Visit Provider Specialist
DX: G40.209 Localization-related (focal) (partial) symptomatic epilepsy and epileptic syndromes with complex partial seizures, not intractable, without status epilepticus (principal)
CPT/HCPCS: 99214

== ENCOUNTER → 2022-01-01 14:49 | Outpatient (BNVA) | payer MEDICARE, MEDICAID, SELFPAY ==
[2021-02-07 10:41] VITALS: BP 108/71; BMI 29.5
== END ==
PROVIDERS: PCP Family Medicine; Visit Provider Family Medicine
DX: G40.209 Localization-related (focal) (partial) symptomatic epilepsy and epileptic syndromes with complex partial seizures, not intractable, without status epilepticus (principal); F10.21 Alcohol dependence, in remission; N52.9 Male erectile dysfunction, unspecified; N40.1 Benign prostatic hyperplasia with lower urinary tract symptoms; R39.16 Straining to void
CPT/HCPCS: 80053; 80156; G0103

== ENCOUNTER → 2022-01-02 11:53 | Outpatient (BNVA) | payer MEDICARE, MEDICAID, SELFPAY ==
[2021-02-07 10:41] VITALS: BP 108/71; BMI 29.5
== END ==
PROVIDERS: PCP Family Medicine; Visit Provider Family Medicine
DX: N40.1 Benign prostatic hyperplasia with lower urinary tract symptoms (principal); R39.16 Straining to void; N52.9 Male erectile dysfunction, unspecified; Z12.5 Encounter for screening for malignant neoplasm of prostate
CPT/HCPCS: G0103

== ENCOUNTER → 2022-02-23 13:57 | Outpatient (BNVA) | payer MEDICAID, SELFPAY ==
[2021-02-07 10:41] VITALS: BP 108/71; BMI 29.5
== END ==
PROVIDERS: PCP Family Medicine; Visit Provider Nurse Practitioner
DX: F31.4 Bipolar disorder, current episode depressed, severe, without psychotic features (principal)
CPT/HCPCS: 80061; 83036

== ENCOUNTER → 2022-05-12 14:46 | Outpatient (BNVA) | payer MEDICARE, MEDICAID, SELFPAY ==
[2022-03-05 16:02] VITALS: BP 117/79; BMI 29.8
== END ==
PROVIDERS: PCP Family Medicine; Visit Provider Family Medicine
DX: R68.89 Other general symptoms and signs (principal)
CPT/HCPCS: 87400

== ENCOUNTER → 2022-11-11 08:23 | Outpatient (BNVA) | payer MEDICARE, MEDICAID, SELFPAY ==
[2022-03-05 16:02] VITALS: BP 117/79; BMI 29.8
== END ==
PROVIDERS: PCP Family Medicine; Visit Provider Specialist
DX: Z96.652 Presence of left artificial knee joint (principal)
CPT/HCPCS: 73560; 73565; 99213

== ENCOUNTER → 2023-01-21 13:25 | Outpatient (BNVA) | payer MEDICARE, MEDICAID, SELFPAY ==
[2022-03-05 16:02] VITALS: BP 117/79; BMI 29.8
== END ==
PROVIDERS: PCP Family Medicine; Visit Provider Family Medicine
DX: G40.209 Localization-related (focal) (partial) symptomatic epilepsy and epileptic syndromes with complex partial seizures, not intractable, without status epilepticus (principal); E78.00 Pure hypercholesterolemia, unspecified
CPT/HCPCS: 80053; 80061; 80157; 85025

== ENCOUNTER → 2023-02-04 10:52 | Outpatient (BNVA) | payer MEDICARE, MEDICAID, SELFPAY ==
[2022-03-05 16:02] VITALS: BP 117/79; BMI 29.8
== END ==
PROVIDERS: PCP Family Medicine; Visit Provider Podiatrist Foot & Ankle Surgery
DX: B35.1 Tinea unguium (principal); L84 Corns and callosities
CPT/HCPCS: 99203

== ENCOUNTER → 2023-07-30 14:50 | Outpatient (BNVA) | payer OTHER, SELFPAY ==
[2022-03-05 16:02] VITALS: BP 117/79; BMI 29.8
== END ==
PROVIDERS: PCP Family Medicine; Visit Provider Nurse Practitioner
DX: F31.75 Bipolar disorder, in partial remission, most recent episode depressed (principal)
CPT/HCPCS: 80061; 83036

== ENCOUNTER → 2023-08-28 10:21 | Outpatient (BNVA) | payer MEDICARE, OTHER, MEDICAID, SELFPAY ==
[2023-08-10 14:27] VITALS: BP 127/69; BMI 29.9
== END ==
PROVIDERS: PCP Family Medicine; Visit Provider Emergency Medicine
DX: R09.81 Nasal congestion (principal)
CPT/HCPCS: 87400

== ENCOUNTER → 2024-10-10 13:59 | Outpatient (BNVA) | payer OTHER, SELFPAY ==
[2023-08-10 14:27] VITALS: BP 127/69; BMI 29.9
== END ==
PROVIDERS: PCP Family Medicine; Visit Provider Nurse Practitioner
DX: F10.21 Alcohol dependence, in remission (principal); F31.73 Bipolar disorder, in partial remission, most recent episode manic
CPT/HCPCS: 80061; 83036

== ENCOUNTER → 2025-05-02 10:54 | Outpatient (BNVA) | payer OTHER, SELFPAY ==
[2024-10-12 16:29] VITALS: BP 113/65; BMI 28.5
== END ==
PROVIDERS: PCP Family Medicine; Visit Provider Nurse Practitioner
DX: F31.73 Bipolar disorder, in partial remission, most recent episode manic (principal); F41.1 Generalized anxiety disorder; F43.10 Post-traumatic stress disorder, unspecified
CPT/HCPCS: 80061; 83036